=== PATIENT | male | born 1945 | race American Indian/Alaskan Native ===

== ENCOUNTER 2018-06-24 13:26 | Inpatient (IN) | payer MEDICARE, OTHER ==
[~2018-06-24] VITALS: Ht 160 cm; Wt 82.8 kg
[2018-06-24 14:19] LABS: BASOPHILS # (AUTO) 0.1 X10'3 (0-0.2); BASOPHILS % (AUTO) 0.9 % (0-1); EOSINOPHILS # (AUTO) 0.1 X10'3 (0-0.9); EOSINOPHILS % (AUTO) 1.6 % (0-6); HEMATOCRIT 44.5 % (42.0-52.0); LYMPHOCYTES # (AUTO) 1.9 X10'3 (1.1-4.8); LYMPHOCYTES % (AUTO) 26.2 % (21-51); MEAN CORPUSCULAR HGB CONC 33.7 % (33.0-36.5); MEAN CORPUSCULAR VOLUME 85.9 FL (78-98); MEAN PLATELET VOLUME 9.1 FL (7.4-10.4); MONOCYTES # (AUTO) 0.5 X10'3 (0-0.9); MONOCYTES % (AUTO) 7.3 % (2-12); NEUTROPHILS # (AUTO) 4.6 X10'3 (1.8-7.7); PLATELET COUNT 209 X10'3 (140-440); RED BLOOD COUNT 5.18 X10'6 (4.70-6.10); RED CELL DISTRIBUTION WIDTH 13.4 % (11.5-14.5); WHITE BLOOD COUNT 7.3 X10'3 (4.5-11.0)
[2018-06-24 14:31] LABS: PARTIAL THROMBOPLASTIN TIME 25 SECONDS (22-32); PROTHROMBIN TIME 10.7 SECONDS (9.0-12.0)
[2018-06-24 14:35] LABS: ALANINE AMINOTRANSFERASE 15 U/L (12-78); ALBUMIN 3.3 G/DL (3.4-5.0); ALKALINE PHOSPHATASE 107 IU/L (46-116); ANION GAP 8 (8-16); ASPARTATE AMINO TRANSFERASE 13 U/L (10-37); BILIRUBIN,TOTAL 0.6 MG/DL (0.1-1.0); BLOOD UREA NITROGEN 7 MG/DL (7-18); BUN/CREATININE RATIO 11.9 (5.4-32.0); CALCIUM 8.7 MG/DL (8.5-10.1); CHLORIDE 100 MMOL/L (99-107); CREATININE 0.59 MG/DL (0.60-1.10); GLUCOSE 251 MG/DL (70-104); POTASSIUM 3.5 MMOL/L (3.5-5.1); SODIUM 138 MMOL/L (135-145); TOTAL CARBON DIOXIDE 30.5 MMOL/L (24-32); TOTAL PROTEIN 6.5 G/DL (6.4-8.2); eGFR > 90 ML/MIN
[2018-06-24 15:37] LABS: D-DIMER 0.84 MG/L FEU (0-0.50)
[2018-06-24] MEDS ORDERED: iohexol 350MG/ML 100ml bottle IV ONE (15:52)
[2018-06-24] MEDS: MESSAGE TO NURSING PO NR (16:32)
[2018-06-24] MEDS ORDERED: NO HOME MEDS (18:59)
[2018-06-24] MEDS ORDERED: magnesium hydroxide 30ml (MOM) UD suspension PO PRN (19:50)
[2018-06-24] MEDS ORDERED: mag hydrox/Alum hydrox/simeth 30ml oral suspension PO PRN (19:50)
[2018-06-24] MEDS ORDERED: acetaminophen 325mg tablet PO PRN (19:50)
[2018-06-24] MEDS ORDERED: ondansetron/PF 4mg/2ml inj IV PRN (19:50)
[2018-06-24] MEDS ORDERED: dextrose ORAL solution 15 GM/59 ML bottle PO PRN ×2 (19:55)
[2018-06-24] MEDS ORDERED: dextrose 50%-water 50ml dispensing syringe IV PRN ×2 (19:55)
[2018-06-24] MEDS ORDERED: glucagon, human recombinant 1mg kit SUBCUT PRN (19:55)
[2018-06-24] MEDS ORDERED: MESSAGE TO PHARMACY PO ONE (19:55)
[2018-06-24 20:00] VITALS: BP 160/89
[2018-06-24] MEDS ORDERED: LIDO700A32 (20:15)
[2018-06-24] MEDS ORDERED: SAXA1TBM2 PO (20:15)
[2018-06-24] MEDS ORDERED: [UNRECOGNIZED DRUG - OTHER] SUBCUT (20:15)
[2018-06-24] MEDS ORDERED: SAXA5TAB PO (20:15)
[2018-06-24] MEDS ORDERED: VENL-190 (20:15)
[2018-06-24] MEDS ORDERED: ALBU8HFA PO (20:15)
[2018-06-24] MEDS ORDERED: IBUP-1984 PO (20:15)
[2018-06-24] MEDS ORDERED: FENO145T36 PO (20:15)
[2018-06-24] MEDS ORDERED: LOSA25TA96 PO (20:15)
[2018-06-24] MEDS ORDERED: BUDE0.5A11 NEB (20:15)
[2018-06-24] MEDS ORDERED: METF500T PO (20:15)
[2018-06-24] MEDS ORDERED: TIOT18CA3 INH (20:15)
[2018-06-24] MEDS ORDERED: PANT-47 PO (20:15)
[2018-06-24] MEDS ORDERED: CETI1SOL48 PO (20:15)
[2018-06-24] MEDS ORDERED: GABA-532 PO (20:15)
[2018-06-24] MEDS ORDERED: ASPI-41 PO (20:15)
[2018-06-24] MEDS ORDERED: OMEG1CAP PO (20:15)
[2018-06-24] MEDS ORDERED: LACT1CAP65 PO (20:15)
[2018-06-24] MEDS ORDERED: PARA500W MC (20:15)
[2018-06-24] MEDS ORDERED: CHOL400T32 PO (20:15)
[2018-06-24 20:19] LABS: HEMOGLOBIN A1C 10.1 % (4.5-6.2)
[2018-06-24] MEDS ORDERED: ALBUTEROL PO PRN (20:25)
[2018-06-24] MEDS ORDERED: ipratropium 0.5 MG/2.5ML nebule IH SCH (21:00)
[2018-06-24] MEDS: insulin Lispro (HumaLOG) vial - multi-dose SQ SCH (21:28)
[2018-06-24] MEDS: insulin glargine (Lantus) pen - multi-dose SQ SCH (21:33)
[2018-06-24] MEDS: gabapentin 300mg capsule PO SCH (21:34)
[2018-06-24] MEDS: heparin, porcine 5000 units/ml vial SQ SCH (21:41)
[2018-06-24 22:00] VITALS: BP 151/88
[2018-06-25 02:00] VITALS: BP 162/103
[2018-06-25 02:03] LABS: BASOPHILS % (AUTO) 0.6 % (0-1); EOSINOPHILS # (AUTO) 0.2 X10'3 (0-0.9); EOSINOPHILS % (AUTO) 2.4 % (0-6); HEMATOCRIT 44.6 % (42.0-52.0); LYMPHOCYTES # (AUTO) 2.2 X10'3 (1.1-4.8); MEAN CORPUSCULAR HEMOGLOBIN 29.1 PG (27.0-31.0); MEAN CORPUSCULAR HGB CONC 33.6 % (33.0-36.5); MEAN CORPUSCULAR VOLUME 86.9 FL (78-98); MEAN PLATELET VOLUME 9.4 FL (7.4-10.4); MONOCYTES # (AUTO) 0.6 X10'3 (0-0.9); MONOCYTES % (AUTO) 7.4 % (2-12); NEUTROPHILS % (AUTO) 61.6 % (42-75); PLATELET COUNT 173 X10'3 (140-440); RED BLOOD COUNT 5.14 X10'6 (4.70-6.10); RED CELL DISTRIBUTION WIDTH 12.8 % (11.5-14.5)
[2018-06-25 03:11] LABS: ALANINE AMINOTRANSFERASE 19 U/L (12-78); ALBUMIN 3.1 G/DL (3.4-5.0); ALKALINE PHOSPHATASE 96 IU/L (46-116); ANION GAP 5 (8-16); ASPARTATE AMINO TRANSFERASE 14 U/L (10-37); BILIRUBIN,TOTAL 0.4 MG/DL (0.1-1.0); BLOOD UREA NITROGEN 10 MG/DL (7-18); BUN/CREATININE RATIO 16.9 (5.4-32.0); CALCIUM 8.7 MG/DL (8.5-10.1); CHLORIDE 101 MMOL/L (99-107); CREATININE 0.59 MG/DL (0.60-1.10); GLUCOSE 214 MG/DL (70-104); POTASSIUM 3.3 MMOL/L (3.5-5.1); SODIUM 138 MMOL/L (135-145); TOTAL CARBON DIOXIDE 32.3 MMOL/L (24-32); TOTAL PROTEIN 6.2 G/DL (6.4-8.2); TROPONIN I < 0.04 NG/ML (0.0-0.05); eGFR > 90 ML/MIN
[2018-06-25 07:16] VITALS: BP 164/104
[2018-06-25] MEDS: budesonide 0.5mg/2ml UD nebule IH SCH ×2 (07:41→20:02)
[2018-06-25] MEDS ORDERED: non-formulary drug (Tiotropium Bromide (Spiriva) 1 CAP) INH SCH (08:00)
[2018-06-25] MEDS ORDERED: CETIRIZINE HCL PO SCH (08:00)
[2018-06-25] MEDS: aspirin 81mg tablet.DR PO SCH (08:27)
[2018-06-25] MEDS: omega-3 acid ethyl esters 1GM capsule PO SCH ×2 (08:27→20:59)
[2018-06-25] MEDS: cetirizine 10mg tablet PO SCH (08:27)
[2018-06-25] MEDS: losartan 50mg tablet PO SCH (08:27)
[2018-06-25] MEDS: fenofibrate 145mg tablet PO SCH (08:27)
[2018-06-25] MEDS: venlafaxine XR 75mg capsule (Q24H) PO SCH (08:27)
[2018-06-25] MEDS: heparin, porcine 5000 units/ml vial SQ SCH ×2 (08:28→21:00)
[2018-06-25] MEDS: pantoprazole 40mg Tablet.DR PO SCH ×2 (08:28→20:59)
[2018-06-25] MEDS ORDERED: aspirin 325mg tablet PO SCH (08:30)
[2018-06-25] MEDS: insulin Lispro (HumaLOG) vial - multi-dose SQ SCH ×3 (08:31→19:12)
[2018-06-25] MEDS: LIDOcaine 5% patch TP SCH (08:32)
[2018-06-25] MEDS ORDERED: metoprolol tartrate 1mg/ml inj IV PRN (10:25)
[2018-06-25] MEDS ORDERED: CAFFEINE CITRATE 60 MG/3 ML injection vial IV PRN (10:25)
[2018-06-25] MEDS ORDERED: nitroGLYCERIN 0.4mg SUBLingual tab SL PRN (10:25)
[2018-06-25] MEDS ORDERED: regadenoson 0.4mg/5ml syringe IV ONE (10:25)
[2018-06-25 11:00] VITALS: BP 167/99
[2018-06-25 15:00] VITALS: BP 100/55
[2018-06-25 18:00] VITALS: BP 154/102
[2018-06-25] MEDS: gabapentin 300mg capsule PO SCH (20:59)
[2018-06-25] MEDS: insulin glargine (Lantus) pen - multi-dose SQ SCH (21:27)
[2018-06-25 22:00] VITALS: BP 162/102
[2018-06-25] MEDS ORDERED: potassium Cl 20 mEq SR tablet PO PRN (22:40)
[2018-06-25] MEDS ORDERED: magnesium 4gm in 100ml NS 100 ML IV PRN (22:40)
[2018-06-25] MEDS ORDERED: potassium Cl 40MEQ/NS 500ml 500 ML IV PRN ×2 (22:40)
[2018-06-26] VITALS (22 sets, daily range): BP systolic 105–146; BP diastolic 54–98
[2018-06-26] MEDS: potassium Cl 20 mEq SR tablet PO PRN ×2 (00:19→05:03)
[2018-06-26 06:38] LABS: BASOPHILS % (AUTO) 0.3 % (0-1); EOSINOPHILS # (AUTO) 0.1 X10'3 (0-0.9); EOSINOPHILS % (AUTO) 1.5 % (0-6); HEMATOCRIT 46.6 % (42.0-52.0); HEMOGLOBIN 15.4 g/dl (14.0-17.9); LYMPHOCYTES # (AUTO) 1.6 X10'3 (1.1-4.8); LYMPHOCYTES % (AUTO) 21.2 % (21-51); MEAN CORPUSCULAR HEMOGLOBIN 28.6 PG (27.0-31.0); MEAN CORPUSCULAR VOLUME 86.7 FL (78-98); MEAN PLATELET VOLUME 9.8 FL (7.4-10.4); MONOCYTES # (AUTO) 0.5 X10'3 (0-0.9); NEUTROPHILS # (AUTO) 5.3 X10'3 (1.8-7.7); PLATELET COUNT 207 X10'3 (140-440); RED BLOOD COUNT 5.37 X10'6 (4.70-6.10); RED CELL DISTRIBUTION WIDTH 13.7 % (11.5-14.5); WHITE BLOOD COUNT 7.5 X10'3 (4.5-11.0)
[2018-06-26 07:00] LABS: MAGNESIUM 1.5 MG/DL (1.5-2.4)
[2018-06-26 07:12] LABS: ALANINE AMINOTRANSFERASE 16 U/L (12-78); ALBUMIN 3.2 G/DL (3.4-5.0); ALKALINE PHOSPHATASE 95 IU/L (46-116); ANION GAP 8 (8-16); ASPARTATE AMINO TRANSFERASE 12 U/L (10-37); BILIRUBIN,TOTAL 0.6 MG/DL (0.1-1.0); BLOOD UREA NITROGEN 10 MG/DL (7-18); BUN/CREATININE RATIO 17.9 (5.4-32.0); CALCIUM 8.9 MG/DL (8.5-10.1); CHLORIDE 102 MMOL/L (99-107); CREATININE 0.56 MG/DL (0.60-1.10); GLUCOSE 142 MG/DL (70-104); MAGNESIUM 1.6 MG/DL (1.5-2.4); SODIUM 139 MMOL/L (135-145); TOTAL PROTEIN 6.4 G/DL (6.4-8.2); eGFR > 90 ML/MIN
[2018-06-26] MEDS: budesonide 0.5mg/2ml UD nebule IH SCH ×2 (08:12→19:55)
[2018-06-26] MEDS ORDERED: regadenoson 0.4mg/5ml syringe IV ONE (09:20)
[2018-06-26] MEDS ORDERED: CAFFEINE CITRATE 60 MG/3 ML injection vial IV ONE (09:20)
[2018-06-26] MEDS ORDERED: ondansetron/PF 4mg/2ml inj ONE (09:45)
[2018-06-26] MEDS: MESSAGE TO NURSING PO NR (10:00)
[2018-06-26] MEDS: cetirizine 10mg tablet PO SCH (10:56)
[2018-06-26] MEDS: aspirin 81mg tablet.DR PO SCH (10:56)
[2018-06-26] MEDS: pantoprazole 40mg Tablet.DR PO SCH ×2 (10:56→20:50)
[2018-06-26] MEDS: fenofibrate 145mg tablet PO SCH (10:56)
[2018-06-26] MEDS: omega-3 acid ethyl esters 1GM capsule PO SCH ×2 (10:56→20:50)
[2018-06-26] MEDS: venlafaxine XR 75mg capsule (Q24H) PO SCH (10:56)
[2018-06-26] MEDS: heparin, porcine 5000 units/ml vial SQ SCH (10:57)
[2018-06-26] MEDS: losartan 50mg tablet PO SCH (10:57)
[2018-06-26] MEDS: LIDOcaine 5% patch TP SCH (10:57)
[2018-06-26] MEDS: normal saline 1000ml 1,000 ML IV SCH ×2 (13:15→22:55)
[2018-06-26] MEDS: insulin Lispro (HumaLOG) vial - multi-dose SQ SCH ×2 (13:30→20:56)
[2018-06-26] MEDS ORDERED: fentaNYL/PF 50MCG/1 ML 2ML syringe ONE (17:55)
[2018-06-26] MEDS ORDERED: LIDOcaine 1% 30ml preserv. free vial ONE (17:55)
[2018-06-26] MEDS ORDERED: midazolam 2 mg/2 ml injection ONE (17:55)
[2018-06-26] MEDS ORDERED: iohexol 350 MG/ML 50ML vial IV ONE ×2 (17:55→18:31)
[2018-06-26] MEDS ORDERED: iohexol 350MG/ML 100ml bottle IV ONE (17:55)
[2018-06-26] MEDS ORDERED: heparin 1,000 UNITS/NS 500ml 500 ML ONE (17:56)
[2018-06-26] MEDS: gabapentin 300mg capsule PO SCH (20:50)
[2018-06-26] MEDS: carVEDilol 3.125mg tablet PO SCH (20:50)
[2018-06-26] MEDS: enoxaparin 40mg/0.4ml syringe SUBCUT SCH (20:58)
[2018-06-26] MEDS: insulin glargine (Lantus) pen - multi-dose SQ SCH (20:58)
[2018-06-27 03:00] VITALS: BP 126/75
[2018-06-27 06:00] VITALS: BP 132/81
[2018-06-27 06:31] LABS: BASOPHILS % (AUTO) 0.4 % (0-1); EOSINOPHILS # (AUTO) 0.2 X10'3 (0-0.9); EOSINOPHILS % (AUTO) 2.4 % (0-6); HEMATOCRIT 44.2 % (42.0-52.0); HEMOGLOBIN 14.6 g/dl (14.0-17.9); LYMPHOCYTES # (AUTO) 1.3 X10'3 (1.1-4.8); LYMPHOCYTES % (AUTO) 16.7 % (21-51); MEAN CORPUSCULAR HEMOGLOBIN 28.9 PG (27.0-31.0); MEAN CORPUSCULAR VOLUME 87.5 FL (78-98); MEAN PLATELET VOLUME 9.7 FL (7.4-10.4); MONOCYTES # (AUTO) 0.5 X10'3 (0-0.9); MONOCYTES % (AUTO) 6.3 % (2-12); NEUTROPHILS # (AUTO) 5.9 X10'3 (1.8-7.7); NEUTROPHILS % (AUTO) 74.2 % (42-75); PLATELET COUNT 210 X10'3 (140-440); RED BLOOD COUNT 5.05 X10'6 (4.70-6.10); RED CELL DISTRIBUTION WIDTH 14.2 % (11.5-14.5)
[2018-06-27 07:22] LABS: ALANINE AMINOTRANSFERASE 17 U/L (12-78); ALBUMIN 2.9 G/DL (3.4-5.0); ALKALINE PHOSPHATASE 83 IU/L (46-116); ANION GAP 4 (8-16); ASPARTATE AMINO TRANSFERASE 15 U/L (10-37); BILIRUBIN,TOTAL 0.4 MG/DL (0.1-1.0); BLOOD UREA NITROGEN 10 MG/DL (7-18); BUN/CREATININE RATIO 16.1 (5.4-32.0); CALCIUM 8.4 MG/DL (8.5-10.1); CHLORIDE 101 MMOL/L (99-107); CREATININE 0.62 MG/DL (0.60-1.10); GLUCOSE 135 MG/DL (70-104); MAGNESIUM 1.4 MG/DL (1.5-2.4); POTASSIUM 4.1 MMOL/L (3.5-5.1); SODIUM 137 MMOL/L (135-145); TOTAL CARBON DIOXIDE 32.2 MMOL/L (24-32); TOTAL PROTEIN 5.9 G/DL (6.4-8.2); eGFR > 90 ML/MIN
[2018-06-27] MEDS: budesonide 0.5mg/2ml UD nebule IH SCH ×2 (07:27→19:12)
[2018-06-27] MEDS ORDERED: lisinopril 2.5mg tablet PO SCH (08:00)
[2018-06-27] MEDS ORDERED: enoxaparin 40mg/0.4ml syringe SUBCUT SCH (08:00)
[2018-06-27] MEDS: pantoprazole 40mg Tablet.DR PO SCH ×2 (08:40→20:16)
[2018-06-27] MEDS: atorvastatin 20mg tablet PO SCH (08:40)
[2018-06-27] MEDS: omega-3 acid ethyl esters 1GM capsule PO SCH ×2 (08:40→20:16)
[2018-06-27] MEDS: cetirizine 10mg tablet PO SCH (08:40)
[2018-06-27] MEDS: venlafaxine XR 75mg capsule (Q24H) PO SCH (08:40)
[2018-06-27] MEDS: losartan 50mg tablet PO SCH (08:40)
[2018-06-27] MEDS: aspirin 81mg tablet.DR PO SCH (08:40)
[2018-06-27] MEDS: fenofibrate 145mg tablet PO SCH (08:40)
[2018-06-27] MEDS: carVEDilol 3.125mg tablet PO SCH ×2 (08:40→20:16)
[2018-06-27] MEDS: enoxaparin 40mg/0.4ml syringe SUBCUT SCH ×2 (08:41→20:16)
[2018-06-27] MEDS: normal saline 1000ml 1,000 ML IV SCH ×2 (08:55→18:55)
[2018-06-27] MEDS: LIDOcaine 5% patch TP SCH (08:56)
[2018-06-27] MEDS: insulin Lispro (HumaLOG) vial - multi-dose SQ SCH ×3 (10:04→19:50)
[2018-06-27 11:00] VITALS: BP 163/82
[2018-06-27] MEDS: magnesium Cl slow-release 64mg tablet PO PRN ×2 (13:05→17:50)
[2018-06-27 15:00] VITALS: BP 116/73
[2018-06-27 19:00] VITALS: BP 123/43
[2018-06-27] MEDS: albuterol 2.5 MG/3 ML nebule NEB PRN (19:12)
[2018-06-27] MEDS: gabapentin 300mg capsule PO SCH (20:16)
[2018-06-27] MEDS: insulin glargine (Lantus) pen - multi-dose SQ SCH (20:47)
[2018-06-27 23:00] VITALS: BP 106/59
[2018-06-28 03:00] VITALS: BP 137/50
[2018-06-28 06:00] VITALS: BP 169/63
[2018-06-28 06:09] LABS: BASOPHILS % (AUTO) 0.3 % (0-1); EOSINOPHILS # (AUTO) 0.2 X10'3 (0-0.9); EOSINOPHILS % (AUTO) 3.1 % (0-6); HEMATOCRIT 42.1 % (42.0-52.0); HEMOGLOBIN 13.9 g/dl (14.0-17.9); LYMPHOCYTES # (AUTO) 1.8 X10'3 (1.1-4.8); LYMPHOCYTES % (AUTO) 22.3 % (21-51); MONOCYTES # (AUTO) 0.7 X10'3 (0-0.9); MONOCYTES % (AUTO) 8.4 % (2-12); NEUTROPHILS # (AUTO) 5.2 X10'3 (1.8-7.7); NEUTROPHILS % (AUTO) 65.9 % (42-75); PLATELET COUNT 202 X10'3 (140-440); RED BLOOD COUNT 4.79 X10'6 (4.70-6.10); RED CELL DISTRIBUTION WIDTH 13.8 % (11.5-14.5); WHITE BLOOD COUNT 7.9 X10'3 (4.5-11.0)
[2018-06-28 06:37] LABS: ALANINE AMINOTRANSFERASE 17 U/L (12-78); ALBUMIN 2.8 G/DL (3.4-5.0); ALBUMIN/GLOBULIN RATIO 0.9 (1.1-1.5); ALKALINE PHOSPHATASE 73 IU/L (46-116); ANION GAP 1 (8-16); ASPARTATE AMINO TRANSFERASE 13 U/L (10-37); BILIRUBIN,TOTAL 0.5 MG/DL (0.1-1.0); BLOOD UREA NITROGEN 10 MG/DL (7-18); BUN/CREATININE RATIO 13.9 (5.4-32.0); CALCIUM 8.5 MG/DL (8.5-10.1); CHLORIDE 100 MMOL/L (99-107); CREATININE 0.72 MG/DL (0.60-1.10); GLUCOSE 126 MG/DL (70-104); MAGNESIUM 1.5 MG/DL (1.5-2.4); POTASSIUM 4.7 MMOL/L (3.5-5.1); SODIUM 137 MMOL/L (135-145); TOTAL PROTEIN 5.9 G/DL (6.4-8.2); eGFR > 90 ML/MIN
[2018-06-28] MEDS: budesonide 0.5mg/2ml UD nebule IH SCH ×2 (07:52→18:50)
[2018-06-28] MEDS: omega-3 acid ethyl esters 1GM capsule PO SCH ×2 (07:58→20:24)
[2018-06-28] MEDS: venlafaxine XR 75mg capsule (Q24H) PO SCH (07:58)
[2018-06-28] MEDS: aspirin 81mg tablet.DR PO SCH (07:58)
[2018-06-28] MEDS: atorvastatin 20mg tablet PO SCH (07:58)
[2018-06-28] MEDS: cetirizine 10mg tablet PO SCH (07:59)
[2018-06-28] MEDS: losartan 50mg tablet PO SCH (07:59)
[2018-06-28] MEDS: LIDOcaine 5% patch TP SCH (07:59)
[2018-06-28] MEDS: carVEDilol 3.125mg tablet PO SCH ×2 (07:59→20:25)
[2018-06-28] MEDS: pantoprazole 40mg Tablet.DR PO SCH ×2 (07:59→20:25)
[2018-06-28] MEDS: fenofibrate 145mg tablet PO SCH (07:59)
[2018-06-28] MEDS: enoxaparin 40mg/0.4ml syringe SUBCUT SCH (08:00)
[2018-06-28] MEDS: insulin Lispro (HumaLOG) vial - multi-dose SQ SCH ×3 (09:39→20:23)
[2018-06-28] MEDS ORDERED: heparin 10,000 units/1 ML INJ IV PRN (13:35)
[2018-06-28] MEDS ORDERED: heparin 10,000 units/1 ML INJ IV ONE (13:35)
[2018-06-28 14:14] LABS: BASOPHILS # (AUTO) 0.1 X10'3 (0-0.2); BASOPHILS % (AUTO) 1.3 % (0-1); EOSINOPHILS # (AUTO) 0.2 X10'3 (0-0.9); EOSINOPHILS % (AUTO) 1.8 % (0-6); HEMATOCRIT 44.9 % (42.0-52.0); HEMOGLOBIN 14.5 g/dl (14.0-17.9); LYMPHOCYTES # (AUTO) 1.7 X10'3 (1.1-4.8); MEAN CORPUSCULAR HEMOGLOBIN 28.5 PG (27.0-31.0); MEAN CORPUSCULAR HGB CONC 32.3 % (33.0-36.5); MEAN CORPUSCULAR VOLUME 88.2 FL (78-98); MEAN PLATELET VOLUME 9.5 FL (7.4-10.4); MONOCYTES # (AUTO) 0.8 X10'3 (0-0.9); MONOCYTES % (AUTO) 8.6 % (2-12); NEUTROPHILS # (AUTO) 6.5 X10'3 (1.8-7.7); NEUTROPHILS % (AUTO) 70.3 % (42-75); PLATELET COUNT 205 X10'3 (140-440); RED CELL DISTRIBUTION WIDTH 13.8 % (11.5-14.5); WHITE BLOOD COUNT 9.3 X10'3 (4.5-11.0)
[2018-06-28 14:24] LABS: INR 1.1 INR; PARTIAL THROMBOPLASTIN TIME 29 SECONDS (22-32); PROTHROMBIN TIME 11.4 SECONDS (9.0-12.0)
[2018-06-28 15:00] VITALS: BP 175/84
[2018-06-28 17:57] VITALS: BP 140/80
[2018-06-28] MEDS: albuterol 2.5 MG/3 ML nebule NEB PRN (18:50)
[2018-06-28 19:00] VITALS: BP 138/69
[2018-06-28] MEDS: gabapentin 300mg capsule PO SCH (20:25)
[2018-06-28] MEDS: insulin glargine (Lantus) pen - multi-dose SQ SCH (22:51)
[2018-06-28 23:00] VITALS: BP 115/69
[2018-06-29 02:41] LABS: ALANINE AMINOTRANSFERASE 11 U/L (12-78); ALBUMIN 2.8 G/DL (3.4-5.0); ALBUMIN/GLOBULIN RATIO 0.9 (1.1-1.5); ALKALINE PHOSPHATASE 72 IU/L (46-116); ANION GAP 3 (8-16); ASPARTATE AMINO TRANSFERASE 14 U/L (10-37); BASOPHILS % (AUTO) 0.7 % (0-1); BILIRUBIN,TOTAL 0.4 MG/DL (0.1-1.0); BLOOD UREA NITROGEN 12 MG/DL (7-18); BUN/CREATININE RATIO 24.5 (5.4-32.0); CALCIUM 8.9 MG/DL (8.5-10.1); CHLORIDE 99 MMOL/L (99-107); CREATININE 0.49 MG/DL (0.60-1.10); EOSINOPHILS # (AUTO) 0.1 X10'3 (0-0.9); EOSINOPHILS % (AUTO) 2.2 % (0-6); GLUCOSE 153 MG/DL (70-104); HEMOGLOBIN 13.6 g/dl (14.0-17.9); LYMPHOCYTES # (AUTO) 1.7 X10'3 (1.1-4.8); LYMPHOCYTES % (AUTO) 25.8 % (21-51); MAGNESIUM 1.5 MG/DL (1.5-2.4); MEAN CORPUSCULAR HEMOGLOBIN 28.9 PG (27.0-31.0); MEAN CORPUSCULAR HGB CONC 33.1 % (33.0-36.5); MEAN CORPUSCULAR VOLUME 87.4 FL (78-98); MEAN PLATELET VOLUME 10.2 FL (7.4-10.4); MONOCYTES # (AUTO) 0.6 X10'3 (0-0.9); MONOCYTES % (AUTO) 9.7 % (2-12); NEUTROPHILS # (AUTO) 4.1 X10'3 (1.8-7.7); NEUTROPHILS % (AUTO) 61.6 % (42-75); PLATELET COUNT 174 X10'3 (140-440); POTASSIUM 3.9 MMOL/L (3.5-5.1); RED BLOOD COUNT 4.69 X10'6 (4.70-6.10); RED CELL DISTRIBUTION WIDTH 13.7 % (11.5-14.5); SODIUM 140 MMOL/L (135-145); WHITE BLOOD COUNT 6.7 X10'3 (4.5-11.0); eGFR > 90 ML/MIN
[2018-06-29 06:00] VITALS: BP 110/70
[2018-06-29] MEDS: budesonide 0.5mg/2ml UD nebule IH SCH ×2 (07:49→20:42)
[2018-06-29] MEDS: fenofibrate 145mg tablet PO SCH (08:31)
[2018-06-29] MEDS: aspirin 81mg tablet.DR PO SCH (08:31)
[2018-06-29] MEDS: pantoprazole 40mg Tablet.DR PO SCH ×2 (08:31→20:50)
[2018-06-29] MEDS: losartan 50mg tablet PO SCH (08:31)
[2018-06-29] MEDS: venlafaxine XR 75mg capsule (Q24H) PO SCH (08:31)
[2018-06-29] MEDS: omega-3 acid ethyl esters 1GM capsule PO SCH ×2 (08:31→20:50)
[2018-06-29] MEDS: cetirizine 10mg tablet PO SCH (08:31)
[2018-06-29] MEDS: atorvastatin 20mg tablet PO SCH (08:31)
[2018-06-29] MEDS: carVEDilol 3.125mg tablet PO SCH ×2 (08:32→20:50)
[2018-06-29] MEDS: LIDOcaine 5% patch TP SCH (08:32)
[2018-06-29] MEDS: insulin Lispro (HumaLOG) vial - multi-dose SQ SCH ×3 (08:38→18:49)
[2018-06-29] MEDS: albuterol 2.5 MG/3 ML nebule NEB PRN (10:56)
[2018-06-29 15:00] VITALS: BP 104/64
[2018-06-29 16:01] LABS: ABG BASE EXCESS 8.6 mmol/L (-2.0-3.0); ABG HCO3 35.4 mmol/L (22.0-26.0); ABG OXYGEN SATURATION 98.7 % (95-98); ABG PCO2 (T) 57.1 mmHg (35.0-48.0); ABG PO2 (T) 131.4 mmHg (83-108); ALLEN'S TEST Positive; FCOHb 0.5 % (0.5-1.5); FLOW 3 L/min; FMetHb 0.2 % (0.3-1.12); TOTAL HEMOGLOBIN 14.7 G/dl (14.0-18.0)
[2018-06-29 19:00] VITALS: BP 125/62
[2018-06-29] MEDS: gabapentin 300mg capsule PO SCH (20:50)
[2018-06-29] MEDS: insulin glargine (Lantus) pen - multi-dose SQ SCH (21:07)
[2018-06-29 23:00] VITALS: BP 122/77
[2018-06-30] VITALS (19 sets, daily range): BP systolic 92–129; BP diastolic 48–81
[2018-06-30] MEDS ORDERED: ringers solution, lacted 1,000 ML IV SCH (01:00)
[2018-06-30] MEDS ORDERED: vancomycin/NS 1 GM ADD-VANTAGE 250 ML IV ONE (01:00)
[2018-06-30] MEDS ORDERED: dextrose 50%-water 50ml dispensing syringe IV PRN ×2 (01:00→12:30)
[2018-06-30] MEDS ORDERED: cefazolin/dext.iso 2gm/50ml 50 ML IV ONE (01:00)
[2018-06-30 04:04] LABS: BASOPHILS # (AUTO) 0.1 X10'3 (0-0.2); BASOPHILS % (AUTO) 1.2 % (0-1); EOSINOPHILS # (AUTO) 0.2 X10'3 (0-0.9); EOSINOPHILS % (AUTO) 2.8 % (0-6); HEMATOCRIT 41.6 % (42.0-52.0); HEMOGLOBIN 13.7 g/dl (14.0-17.9); LYMPHOCYTES # (AUTO) 1.5 X10'3 (1.1-4.8); LYMPHOCYTES % (AUTO) 23.8 % (21-51); MEAN CORPUSCULAR HEMOGLOBIN 28.8 PG (27.0-31.0); MEAN CORPUSCULAR HGB CONC 32.8 % (33.0-36.5); MEAN CORPUSCULAR VOLUME 87.6 FL (78-98); MEAN PLATELET VOLUME 10.3 FL (7.4-10.4); MONOCYTES # (AUTO) 0.6 X10'3 (0-0.9); MONOCYTES % (AUTO) 9.8 % (2-12); NEUTROPHILS # (AUTO) 3.9 X10'3 (1.8-7.7); NEUTROPHILS % (AUTO) 62.4 % (42-75); PLATELET COUNT 159 X10'3 (140-440); RED BLOOD COUNT 4.75 X10'6 (4.70-6.10); RED CELL DISTRIBUTION WIDTH 13.7 % (11.5-14.5); WHITE BLOOD COUNT 6.2 X10'3 (4.5-11.0)
[2018-06-30 04:16] LABS: ALBUMIN 2.9 G/DL (3.4-5.0); ANION GAP 1 (8-16); BLOOD UREA NITROGEN 10 MG/DL (7-18); BUN/CREATININE RATIO 18.2 (5.4-32.0); CALCIUM 9.1 MG/DL (8.5-10.1); CHLORIDE 100 MMOL/L (99-107); CREATININE 0.55 MG/DL (0.60-1.10); GLUCOSE 145 MG/DL (70-104); SODIUM 139 MMOL/L (135-145); TOTAL CARBON DIOXIDE 37.7 MMOL/L (24-32); eGFR > 90 ML/MIN
[2018-06-30 04:19] LABS: INR 1.1 INR; PROTHROMBIN TIME 11.4 SECONDS (9.0-12.0)
[2018-06-30 04:22] LABS: POTASSIUM 4.2 MMOL/L (3.5-5.1)
[2018-06-30] MEDS ORDERED: LORazepam 2 mg/ml vial IV ONE (06:00)
[2018-06-30] MEDS ORDERED: famotidine 20mg tablet PO ONE (06:00)
[2018-06-30] MEDS ORDERED: mupirocin 2% nasal ointment 1gm UD NS SCH (06:22)
[2018-06-30] MEDS ORDERED: SUFENTANIL CITRATE 50 MCG/ML 2ml ampule IV ONE (06:58)
[2018-06-30] MEDS ORDERED: MIDAZolam 1mg/ml 10ml vial ONE (06:58)
[2018-06-30] MEDS: budesonide 0.5mg/2ml UD nebule IH SCH ×2 (06:59→20:00)
[2018-06-30] MEDS: albuterol 2.5 MG/3 ML nebule NEB PRN (06:59)
[2018-06-30] MEDS ORDERED: rocuronium 10mg/ml inj IV ONE ×2 (06:59)
[2018-06-30] MEDS ORDERED: propofol inj 20 ML IV ONE (06:59)
[2018-06-30] MEDS ORDERED: sevoflurane 250ml liquid IH ONE (07:00)
[2018-06-30] MEDS: venlafaxine XR 75mg capsule (Q24H) PO SCH (08:00)
[2018-06-30] MEDS: cetirizine 10mg tablet PO SCH (08:00)
[2018-06-30 08:01] LABS: ABG BASE EXCESS 8.8 mmol/L (-2.0-3.0); ABG HCO3 34.5 mmol/L (22.0-26.0); ABG OXYGEN SATURATION 96.6 % (95-98); ABG PCO2 51.9 mmHg (35.0-45.0); ABG PH 7.441 (7.350-7.450); ABG PO2 82.3 mmHg (60.0-100.0); CL (ABG) 98 mmol/L (99-107); FCOHb 1.1 % (0.5-1.5); FO2Hb 95.5 % (94-100); GLUCOSE (ABG) 120 mg/dl (70-105); IONIZED CA (ABG) 1.12 mmol/L (1.03-1.32); K (ABG) 3.9 mmol/L (3.3-5.1); NA (ABG) 138 mmol/L (135-145)
[2018-06-30] MEDS ORDERED: heparin 10,000 units/1 ML INJ IR ONE (08:41)
[2018-06-30] MEDS ORDERED: papaverine 30 mg/ml 2ml inj. IA ONE (08:44)
[2018-06-30] MEDS ORDERED: aminocaproic acid 250 MG/1 ML inj. ONE (09:00)
[2018-06-30] MEDS ORDERED: papaverine 30 mg/ml 2ml inj. ONE (09:00)
[2018-06-30] MEDS ORDERED: NORepinephrine bitartrate 8 MG in NS 250 ML BAG (32 mcg/ml) IV ONE (09:00)
[2018-06-30] MEDS ORDERED: heparin 1,000 units/ml 10ml inj ONE (09:00)
[2018-06-30] MEDS ORDERED: albumin (human) 25% 100 ML IV solution IV ONE (09:00)
[2018-06-30] MEDS ORDERED: potassium Cl 2 mEq/ml inj IV ONE (09:00)
[2018-06-30] MEDS ORDERED: magnesium sulf 1 GM/2 ML ONE (09:00)
[2018-06-30] MEDS ORDERED: calcium chloride 100 MG/1 ML inj IV ONE (09:00)
[2018-06-30] MEDS ORDERED: phenylephrine 10mg/ml inj. ONE (09:00)
[2018-06-30] MEDS ORDERED: insulin Lispro (HumaLOG) vial - multi-dose SQ SCH (09:00)
[2018-06-30] MEDS ORDERED: heparin 10,000 units/1 ML INJ ONE ×2 (09:00)
[2018-06-30] MEDS ORDERED: sodium bicarbonate (8.4%) 1 mEq/ml syringe ONE (09:00)
[2018-06-30 09:06] LABS: ABG BASE EXCESS VENOUS 7.2 mmol/L; ABG HCO3 VENOUS 33.9 mmol/L; ABG PCO2 VENOUS 57.4 mmHg; ABG PO2 VENOUS 42.5 mmHg; CL (ABG) 98 mmol/L (99-107); FCOHb VENOUS 1.1 %; FHHb VENOUS 21.7 %; FMetHb VENOUS 0.3 %; FO2Hb VENOUS 76.9 %; GLUCOSE (ABG) 118 mg/dl (70-105); IONIZED CA (ABG) 1.09 mmol/L (1.03-1.32); K (ABG) 3.8 mmol/L (3.3-5.1); NA (ABG) 138 mmol/L (135-145); TOTAL HEMOGLOBIN 12.9 G/dl (14.0-18.0)
[2018-06-30 09:36] LABS: ABG BASE EXCESS 8.9 mmol/L (-2.0-3.0); ABG HCO3 32.5 mmol/L (22.0-26.0); ABG OXYGEN SATURATION 99.5 % (95-98); ABG PCO2 40.8 mmHg (35.0-45.0); ABG PH 7.519 (7.350-7.450); ABG PO2 332.5 mmHg (60.0-100.0); CL (ABG) 97 mmol/L (99-107); FCOHb 0.5 % (0.5-1.5); FMetHb 0.2 % (0.3-1.12); FO2Hb 98.8 % (94-100); GLUCOSE (ABG) 116 mg/dl (70-105); IONIZED CA (ABG) 0.99 mmol/L (1.03-1.32); NA (ABG) 135 mmol/L (135-145); TOTAL HEMOGLOBIN 10.8 G/dl (14.0-18.0)
[2018-06-30 09:46] LABS: ABG BASE EXCESS 7.4 mmol/L (-2.0-3.0); ABG HCO3 29.8 mmol/L (22.0-26.0); ABG OXYGEN SATURATION 99.6 % (95-98); ABG PO2 368.8 mmHg (60.0-100.0); CL (ABG) 98 mmol/L (99-107); FCOHb 0.5 % (0.5-1.5); FMetHb 0.2 % (0.3-1.12); FO2Hb 98.9 % (94-100); GLUCOSE (ABG) 113 mg/dl (70-105); IONIZED CA (ABG) 1.03 mmol/L (1.03-1.32); K (ABG) 4.3 mmol/L (3.3-5.1); NA (ABG) 136 mmol/L (135-145)
[2018-06-30 10:00] LABS: ABG BASE EXCESS 6.9 mmol/L (-2.0-3.0); ABG HCO3 30.1 mmol/L (22.0-26.0); ABG OXYGEN SATURATION 99.7 % (95-98); ABG PCO2 37.6 mmHg (35.0-45.0); ABG PH 7.521 (7.350-7.450); ABG PO2 368.2 mmHg (60.0-100.0); CL (ABG) 98 mmol/L (99-107); FCOHb 0.7 % (0.5-1.5); FMetHb 0.3 % (0.3-1.12); FO2Hb 98.7 % (94-100); GLUCOSE (ABG) 118 mg/dl (70-105); IONIZED CA (ABG) 1.04 mmol/L (1.03-1.32); K (ABG) 4.6 mmol/L (3.3-5.1); NA (ABG) 136 mmol/L (135-145); TOTAL HEMOGLOBIN 11.2 G/dl (14.0-18.0)
[2018-06-30 10:15] LABS: ACT @ 1.70 U 265 SEC (193-297); ACT @ 2.84 U 371 SEC (260-420); BASELINE ACT 163 SEC (101-148); PATIENT WEIGHT 82.0k KG
[2018-06-30 10:21] LABS: ABG BASE EXCESS 7.2 mmol/L (-2.0-3.0); ABG HCO3 30.2 mmol/L (22.0-26.0); ABG OXYGEN SATURATION 99.7 % (95-98); ABG PCO2 37.2 mmHg (35.0-45.0); ABG PH 7.528 (7.350-7.450); ABG PO2 336.1 mmHg (60.0-100.0); CL (ABG) 98 mmol/L (99-107); FCOHb 0.7 % (0.5-1.5); FMetHb 0.3 % (0.3-1.12); FO2Hb 98.7 % (94-100); GLUCOSE (ABG) 119 mg/dl (70-105); IONIZED CA (ABG) 1.05 mmol/L (1.03-1.32); K (ABG) 4.5 mmol/L (3.3-5.1); NA (ABG) 136 mmol/L (135-145); TOTAL HEMOGLOBIN 11.2 G/dl (14.0-18.0)
[2018-06-30 11:05] LABS: ABG HCO3 30.4 mmol/L (22.0-26.0); ABG OXYGEN SATURATION 99.4 % (95-98); ABG PH 7.721 (7.350-7.450); ABG PO2 439.4 mmHg (60.0-100.0); CL (ABG) 99 mmol/L (99-107); FCOHb 0.2 % (0.5-1.5); FMetHb 0.4 % (0.3-1.12); FO2Hb 98.8 % (94-100); GLUCOSE (ABG) 142 mg/dl (70-105); IONIZED CA (ABG) 1.22 mmol/L (1.03-1.32); K (ABG) 4.4 mmol/L (3.3-5.1); NA (ABG) 134 mmol/L (135-145); TOTAL HEMOGLOBIN 10.3 G/dl (14.0-18.0)
[2018-06-30 11:46] LABS: ABG BASE EXCESS VENOUS 8.6 mmol/L; ABG HCO3 VENOUS 33.1 mmol/L; ABG PCO2 VENOUS 45.4 mmHg; ABG PO2 VENOUS 32.6 mmHg; CL (ABG) 99 mmol/L (99-107); FCOHb VENOUS 0.8 %; FHHb VENOUS 33.5 %; FMetHb VENOUS 0.4 %; FO2Hb VENOUS 65.3 %; GLUCOSE (ABG) 146 mg/dl (70-105); IONIZED CA (ABG) 1.23 mmol/L (1.03-1.32); K (ABG) 4.1 mmol/L (3.3-5.1); NA (ABG) 139 mmol/L (135-145)
[2018-06-30 11:55] LABS: ACTIVATED CLOTTING TIME 120 SEC (101-148)
[2018-06-30] MEDS ORDERED: nitroGLYCERIN-Tridil 50MG/D5W 250 ML IV PRN ×2 (12:27→12:56)
[2018-06-30] MEDS ORDERED: NORepinephrine 8mg/ 250ml NS 250 ML IV PRN ×2 (12:27→12:55)
[2018-06-30] MEDS ORDERED: niCARDipine/sod cl 20mg/200ml 200 ML IV PRN ×2 (12:27→12:56)
[2018-06-30] MEDS ORDERED: DOPamine 400mg/D5W 250ml 250 ML IV PRN ×2 (12:27→12:54)
[2018-06-30] MEDS ORDERED: sodium phosphate inj. 15 MMOL in dextrose 5%-water 150 ML IV PRN (12:30)
[2018-06-30] MEDS ORDERED: magnesium hydroxide 30ml (MOM) UD suspension PO PRN (12:30)
[2018-06-30] MEDS ORDERED: acetaminophen 325mg tablet PO PRN (12:30)
[2018-06-30] MEDS ORDERED: Neutra Phos packet PO PRN (12:30)
[2018-06-30] MEDS ORDERED: metoclopramide 5 mg/ml inj IV PRN (12:30)
[2018-06-30] MEDS ORDERED: ondansetron/PF 4mg/2ml inj IV PRN (12:30)
[2018-06-30] MEDS ORDERED: normal saline 250ml IV soln 250 ML IV PRN (12:30)
[2018-06-30] MEDS ORDERED: sodium phosphate inj. 30 MMOL in dextrose 5%-water 250 ML IV PRN (12:30)
[2018-06-30] MEDS ORDERED: morphine 4 MG/ML inj SYRINge IV PRN (12:30)
[2018-06-30] MEDS ORDERED: potassium Cl 20mEq/100mL bag 100 ML IV PRN ×2 (12:30)
[2018-06-30] MEDS ORDERED: HYDROcodone/acetaminophen 10/325mg tab PO PRN (12:30)
[2018-06-30] MEDS ORDERED: insulin regular, human inj. 100 UNITS in normal saline 100ml IV soln 100 ML IV SCH ×2 (12:30)
[2018-06-30] MEDS ORDERED: albumin (Human) 5% 250ml 250 ML IV ONE (12:42)
[2018-06-30 12:51] LABS: ABG BASE EXCESS 3.9 mmol/L (-2.0-3.0); ABG HCO3 26.3 mmol/L (22.0-26.0); ABG OXYGEN SATURATION 98.7 % (95-98); ABG PCO2 (T) 32.1 mmHg (35.0-48.0); ABG PO2 (T) 141.6 mmHg (83-108); FCOHb 0.3 % (0.5-1.5); FMetHb 0.2 % (0.3-1.12); FO2Hb 98.2 % (94-100); MINUTE VOLUME 8 L/min; PATIENT TEMPERATURE 36.6; PEEP 5 cm H2O; RESPIRATORY RATE 14 b/min; RESPIRATORY RATE (OBSERVED) 24 b/min; TIDAL VOLUME 500 mL
[2018-06-30] MEDS: albumin (Human) 5% 250ml 250 ML IV PRN ×3 (12:52→19:44)
[2018-06-30] MEDS: insulin Lispro (HumaLOG) vial - multi-dose SQ SCH ×2 (13:00→16:42)
[2018-06-30 13:03] LABS: BASOPHILS % (AUTO) 0.3 % (0-1); EOSINOPHILS % (AUTO) 0.3 % (0-6); HEMATOCRIT 36.9 % (42.0-52.0); HEMOGLOBIN 12.2 g/dl (14.0-17.9); LYMPHOCYTES # (AUTO) 0.4 X10'3 (1.1-4.8); MEAN CORPUSCULAR HEMOGLOBIN 28.9 PG (27.0-31.0); MEAN CORPUSCULAR HGB CONC 33.1 % (33.0-36.5); MEAN CORPUSCULAR VOLUME 87.3 FL (78-98); MEAN PLATELET VOLUME 10.1 FL (7.4-10.4); MONOCYTES # (AUTO) 0.3 X10'3 (0-0.9); NEUTROPHILS # (AUTO) 7.5 X10'3 (1.8-7.7); NEUTROPHILS % (AUTO) 90.4 % (42-75); PLATELET COUNT 128 X10'3 (140-440); RED BLOOD COUNT 4.23 X10'6 (4.70-6.10); RED CELL DISTRIBUTION WIDTH 13.6 % (11.5-14.5); WHITE BLOOD COUNT 8.3 X10'3 (4.5-11.0)
[2018-06-30] MEDS: insulin regular, human inj. 100 UNITS in normal saline 100ml IV soln 100 ML IV SCH ×2 (13:03)
[2018-06-30] MEDS: milrinone (Primacor) 20mg/D5W 100 ML IV PRN ×2 (13:04→19:07)
[2018-06-30 13:14] LABS: INR 1.2 INR; PARTIAL THROMBOPLASTIN TIME 24 SECONDS (22-32); PROTHROMBIN TIME 12.4 SECONDS (9.0-12.0)
[2018-06-30 13:19] LABS: ALANINE AMINOTRANSFERASE 16 U/L (12-78); ALBUMIN 2.5 G/DL (3.4-5.0); ALBUMIN/GLOBULIN RATIO 1.1 (1.1-1.5); ALKALINE PHOSPHATASE 54 IU/L (46-116); ANION GAP 7 (8-16); ASPARTATE AMINO TRANSFERASE 34 U/L (10-37); BILIRUBIN,TOTAL 0.8 MG/DL (0.1-1.0); BLOOD UREA NITROGEN 9 MG/DL (7-18); BUN/CREATININE RATIO 15.3 (5.4-32.0); CALCIUM 9.3 MG/DL (8.5-10.1); CHLORIDE 106 MMOL/L (99-107); CREATININE 0.59 MG/DL (0.60-1.10); GLUCOSE 141 MG/DL (70-104); MAGNESIUM 2.4 MG/DL (1.5-2.4); PHOSPHORUS 2.2 MG/DL (2.3-4.5); SODIUM 144 MMOL/L (135-145); TOTAL CARBON DIOXIDE 31.3 MMOL/L (24-32); TOTAL PROTEIN 4.8 G/DL (6.4-8.2); eGFR > 90 ML/MIN
[2018-06-30 13:21] LABS: POTASSIUM 3.5 MMOL/L (3.5-5.1)
[2018-06-30] MEDS: sodium chloride 0.45% 1,000 ML IV SCH (13:30)
[2018-06-30] MEDS: potassium Cl 20mEq/100mL bag 100 ML IV PRN ×2 (13:38→15:31)
[2018-06-30] MEDS: ceFAZolin 1GM/D5W- ADD-VANTAGE 50 ML IV SCH ×2 (16:46→23:21)
[2018-06-30] MEDS: magnesium 1gm/100ml D5W IVPB 100 ML IV PRN ×2 (17:43→19:02)
[2018-06-30 18:27] LABS: BASOPHILS % (AUTO) 0.1 % (0-1); EOSINOPHILS % (AUTO) 0 % (0-6); HEMATOCRIT 33.8 % (42.0-52.0); HEMOGLOBIN 11.1 g/dl (14.0-17.9); LYMPHOCYTES # (AUTO) 0.3 X10'3 (1.1-4.8); MEAN CORPUSCULAR HEMOGLOBIN 28.7 PG (27.0-31.0); MEAN CORPUSCULAR HGB CONC 32.7 % (33.0-36.5); MEAN CORPUSCULAR VOLUME 87.6 FL (78-98); MEAN PLATELET VOLUME 10.3 FL (7.4-10.4); MONOCYTES # (AUTO) 0.4 X10'3 (0-0.9); MONOCYTES % (AUTO) 4.4 % (2-12); NEUTROPHILS % (AUTO) 92.5 % (42-75); PLATELET COUNT 125 X10'3 (140-440); RED BLOOD COUNT 3.86 X10'6 (4.70-6.10); RED CELL DISTRIBUTION WIDTH 13.7 % (11.5-14.5); WHITE BLOOD COUNT 9.7 X10'3 (4.5-11.0)
[2018-06-30 18:36] LABS: ANION GAP 5 (8-16); BLOOD UREA NITROGEN 12 MG/DL (7-18); BUN/CREATININE RATIO 17.9 (5.4-32.0); CHLORIDE 107 MMOL/L (99-107); CREATININE 0.67 MG/DL (0.60-1.10); GLUCOSE 154 MG/DL (70-104); POTASSIUM 4.4 MMOL/L (3.5-5.1); SODIUM 145 MMOL/L (135-145); TOTAL CARBON DIOXIDE 32.9 MMOL/L (24-32); eGFR > 90 ML/MIN
[2018-06-30] MEDS ORDERED: amiodarone 150mg/dext, iso-os 100 ML IV ONE (19:15)
[2018-06-30] MEDS: amiodarone/D5 360MG/200ML BAG 200 ML IV SCH (19:21)
[2018-06-30] MEDS: docusate sod 100mg capsule PO SCH (20:00)
[2018-06-30] MEDS: mupirocin 2% nasal ointment 1gm UD NS SCH (20:05)
[2018-06-30] MEDS: vancomycin/NS 1 GM ADD-VANTAGE 250 ML IV SCH (20:05)
[2018-06-30] MEDS: gabapentin 300mg capsule PO SCH (21:00)
[2018-06-30 23:06] LABS: ABG BASE EXCESS 2.8 mmol/L (-2.0-3.0); ABG HCO3 27.5 mmol/L (22.0-26.0); ABG OXYGEN SATURATION 95.7 % (95-98); FCOHb 0.3 % (0.5-1.5); FO2Hb 95.4 % (94-100); MINUTE VOLUME 7 L/min; PEEP 5 cm H2O; RESPIRATORY RATE (OBSERVED) 16 b/min; TOTAL HEMOGLOBIN 11.1 G/dl (14.0-18.0)
[2018-06-30] MEDS: morphine 4 MG/ML inj SYRINge IV PRN (23:22)
[2018-07-01] VITALS (24 sets, daily range): BP systolic 14–155; BP diastolic 55–89
[2018-07-01] MEDS: insulin regular, human inj. 100 UNITS in normal saline 100ml IV soln 100 ML IV SCH ×2 (01:00)
[2018-07-01] MEDS: amiodarone/D5 360MG/200ML BAG 200 ML IV SCH ×4 (01:04→22:34)
[2018-07-01 03:40] LABS: BASOPHILS % (AUTO) 0.1 % (0-1); EOSINOPHILS # (AUTO) 0.1 X10'3 (0-0.9); EOSINOPHILS % (AUTO) 1.5 % (0-6); HEMATOCRIT 31.8 % (42.0-52.0); HEMOGLOBIN 10.6 g/dl (14.0-17.9); LYMPHOCYTES # (AUTO) 0.6 X10'3 (1.1-4.8); LYMPHOCYTES % (AUTO) 6.2 % (21-51); MEAN CORPUSCULAR HGB CONC 33.3 % (33.0-36.5); MEAN CORPUSCULAR VOLUME 87.3 FL (78-98); MEAN PLATELET VOLUME 10.4 FL (7.4-10.4); MONOCYTES # (AUTO) 0.6 X10'3 (0-0.9); MONOCYTES % (AUTO) 6.1 % (2-12); NEUTROPHILS # (AUTO) 8.1 X10'3 (1.8-7.7); NEUTROPHILS % (AUTO) 86.1 % (42-75); PLATELET COUNT 123 X10'3 (140-440); RED BLOOD COUNT 3.65 X10'6 (4.70-6.10); RED CELL DISTRIBUTION WIDTH 13.7 % (11.5-14.5); WHITE BLOOD COUNT 9.4 X10'3 (4.5-11.0)
[2018-07-01 03:53] LABS: INR 1.1 INR; PARTIAL THROMBOPLASTIN TIME 26 SECONDS (22-32); PROTHROMBIN TIME 11.4 SECONDS (9.0-12.0)
[2018-07-01 03:59] LABS: ALANINE AMINOTRANSFERASE 16 U/L (12-78); ALBUMIN 3.2 G/DL (3.4-5.0); ALBUMIN/GLOBULIN RATIO 1.5 (1.1-1.5); ALKALINE PHOSPHATASE 46 IU/L (46-116); ANION GAP 4 (8-16); ASPARTATE AMINO TRANSFERASE 34 U/L (10-37); BILIRUBIN,TOTAL 0.4 MG/DL (0.1-1.0); BLOOD UREA NITROGEN 14 MG/DL (7-18); BUN/CREATININE RATIO 16.9 (5.4-32.0); CALCIUM 8.5 MG/DL (8.5-10.1); CHLORIDE 107 MMOL/L (99-107); CREATININE 0.83 MG/DL (0.60-1.10); GLUCOSE 141 MG/DL (70-104); MAGNESIUM 1.8 MG/DL (1.5-2.4); PHOSPHORUS 4.5 MG/DL (2.3-4.5); SODIUM 143 MMOL/L (135-145); TOTAL CARBON DIOXIDE 31.9 MMOL/L (24-32); TOTAL PROTEIN 5.3 G/DL (6.4-8.2); eGFR > 90 ML/MIN
[2018-07-01] MEDS: magnesium 4gm in 100ml NS 100 ML IV PRN (04:07)
[2018-07-01] MEDS: potassium Cl 20mEq/100mL bag 100 ML IV PRN (04:15)
[2018-07-01] MEDS: morphine 4 MG/ML inj SYRINge IV PRN (04:39)
[2018-07-01] MEDS: HYDROcodone/acetaminophen 10/325mg tab PO PRN (06:02)
[2018-07-01] MEDS: milrinone (Primacor) 20mg/D5W 100 ML IV PRN (07:32)
[2018-07-01] MEDS: budesonide 0.5mg/2ml UD nebule IH SCH ×2 (07:55→21:03)
[2018-07-01] MEDS ORDERED: metoprolol tartrate 12.5mg (1/2 tablet) PO SCH (08:00)
[2018-07-01] MEDS: venlafaxine XR 75mg capsule (Q24H) PO SCH (08:24)
[2018-07-01] MEDS: pantoprazole 40mg Tablet.DR PO SCH (08:24)
[2018-07-01] MEDS: docusate sod 100mg capsule PO SCH ×2 (08:24→21:15)
[2018-07-01] MEDS: aspirin 325mg tablet, delayed-release (Ecotrin) PO SCH (08:24)
[2018-07-01] MEDS: atorvastatin 10mg tablet PO SCH (08:24)
[2018-07-01] MEDS: ceFAZolin 1GM/D5W- ADD-VANTAGE 50 ML IV SCH ×3 (08:26→23:48)
[2018-07-01] MEDS: mupirocin 2% nasal ointment 1gm UD NS SCH ×2 (08:26→22:34)
[2018-07-01] MEDS: vancomycin/NS 1 GM ADD-VANTAGE 250 ML IV SCH ×2 (08:27→21:15)
[2018-07-01] MEDS: cetirizine 10mg tablet PO SCH (08:32)
[2018-07-01] MEDS: insulin Lispro (HumaLOG) vial - multi-dose SQ SCH ×3 (08:41→19:23)
[2018-07-01] MEDS: ketorolac tromethamine 15mg/ml inj. IV PRN ×2 (09:44→21:14)
[2018-07-01 12:45] LABS: MAGNESIUM 2.5 MG/DL (1.5-2.4); POTASSIUM 5.3 MMOL/L (3.5-5.1)
[2018-07-01] MEDS ORDERED: carVEDilol 3.125mg tablet PO SCH (20:00)
[2018-07-01] MEDS ORDERED: lisinopril 2.5mg tablet PO ONE (21:00)
[2018-07-01] MEDS: gabapentin 300mg capsule PO SCH (21:15)
[2018-07-01] MEDS: insulin glargine (Lantus) pen - multi-dose SQ SCH (21:18)
[2018-07-02] VITALS (24 sets, daily range): BP systolic 94–158; BP diastolic 59–94
[2018-07-02] MEDS: amiodarone/D5 360MG/200ML BAG 200 ML IV SCH ×4 (01:35→19:47)
[2018-07-02 05:04] LABS: BASOPHILS % (AUTO) 0.2 % (0-1); EOSINOPHILS # (AUTO) 0.1 X10'3 (0-0.9); EOSINOPHILS % (AUTO) 0.9 % (0-6); HEMATOCRIT 33.5 % (42.0-52.0); HEMOGLOBIN 10.9 g/dl (14.0-17.9); LYMPHOCYTES % (AUTO) 6.8 % (21-51); MEAN CORPUSCULAR HGB CONC 32.6 % (33.0-36.5); MEAN PLATELET VOLUME 11.8 FL (7.4-10.4); MONOCYTES # (AUTO) 0.9 X10'3 (0-0.9); MONOCYTES % (AUTO) 6.6 % (2-12); NEUTROPHILS # (AUTO) 12.1 X10'3 (1.8-7.7); NEUTROPHILS % (AUTO) 85.5 % (42-75); PLATELET COUNT 132 X10'3 (140-440); RED BLOOD COUNT 3.77 X10'6 (4.70-6.10); RED CELL DISTRIBUTION WIDTH 14.1 % (11.5-14.5); WHITE BLOOD COUNT 14.2 X10'3 (4.5-11.0)
[2018-07-02 05:57] LABS: ANION GAP 7 (8-16); BLOOD UREA NITROGEN 24 MG/DL (7-18); CALCIUM 8.5 MG/DL (8.5-10.1); CHLORIDE 101 MMOL/L (99-107); GLUCOSE 272 MG/DL (70-104); PHOSPHORUS 4.8 MG/DL (2.3-4.5); POTASSIUM 5.5 MMOL/L (3.5-5.1); SODIUM 139 MMOL/L (135-145); TOTAL CARBON DIOXIDE 31.3 MMOL/L (24-32); eGFR > 90 ML/MIN
[2018-07-02] MEDS ORDERED: furosemide 40mg/4ml inj IV ONE (06:50)
[2018-07-02] MEDS: HYDROcodone/acetaminophen 10/325mg tab PO PRN (07:09)
[2018-07-02] MEDS: aspirin 325mg tablet, delayed-release (Ecotrin) PO SCH (07:59)
[2018-07-02] MEDS: pantoprazole 40mg Tablet.DR PO SCH (07:59)
[2018-07-02] MEDS: venlafaxine XR 75mg capsule (Q24H) PO SCH (07:59)
[2018-07-02] MEDS: carvedilol 6.25mg tablet PO SCH ×3 (07:59→20:53)
[2018-07-02] MEDS: atorvastatin 10mg tablet PO SCH (07:59)
[2018-07-02] MEDS: docusate sod 100mg capsule PO SCH ×2 (07:59→20:53)
[2018-07-02] MEDS: mupirocin 2% nasal ointment 1gm UD NS SCH (07:59)
[2018-07-02] MEDS: cetirizine 10mg tablet PO SCH (08:09)
[2018-07-02] MEDS: budesonide 0.5mg/2ml UD nebule IH SCH ×2 (08:37→20:00)
[2018-07-02] MEDS: insulin Lispro (HumaLOG) vial - multi-dose SQ SCH ×3 (09:46→18:53)
[2018-07-02] MEDS: sodium chloride 0.45% 1,000 ML IV SCH (12:27)
[2018-07-02] MEDS: gabapentin 300mg capsule PO SCH (20:53)
[2018-07-02] MEDS: insulin glargine (Lantus) pen - multi-dose SQ SCH (20:58)
[2018-07-02] MEDS: magnesium 4gm in 100ml NS 100 ML IV PRN (20:59)
[2018-07-03] VITALS (15 sets, daily range): BP systolic 93–136; BP diastolic 52–75
[2018-07-03] MEDS: amiodarone/D5 360MG/200ML BAG 200 ML IV SCH (01:51)
[2018-07-03 03:02] LABS: BASOPHILS % (AUTO) 0 % (0-1); EOSINOPHILS % (AUTO) 0.2 % (0-6); HEMATOCRIT 34.9 % (42.0-52.0); HEMOGLOBIN 11.4 g/dl (14.0-17.9); LYMPHOCYTES # (AUTO) 1.2 X10'3 (1.1-4.8); LYMPHOCYTES % (AUTO) 8.5 % (21-51); MEAN CORPUSCULAR HEMOGLOBIN 28.9 PG (27.0-31.0); MEAN CORPUSCULAR HGB CONC 32.6 % (33.0-36.5); MEAN CORPUSCULAR VOLUME 88.6 FL (78-98); MEAN PLATELET VOLUME 11.4 FL (7.4-10.4); MONOCYTES # (AUTO) 1.4 X10'3 (0-0.9); MONOCYTES % (AUTO) 9.8 % (2-12); NEUTROPHILS # (AUTO) 11.2 X10'3 (1.8-7.7); NEUTROPHILS % (AUTO) 81.5 % (42-75); PLATELET COUNT 141 X10'3 (140-440); RED BLOOD COUNT 3.94 X10'6 (4.70-6.10); RED CELL DISTRIBUTION WIDTH 13.9 % (11.5-14.5); WHITE BLOOD COUNT 13.8 X10'3 (4.5-11.0)
[2018-07-03 03:33] LABS: ANION GAP 3 (8-16); BLOOD UREA NITROGEN 22 MG/DL (7-18); BUN/CREATININE RATIO 34.9 (5.4-32.0); CALCIUM 8.4 MG/DL (8.5-10.1); CHLORIDE 100 MMOL/L (99-107); CREATININE 0.63 MG/DL (0.60-1.10); GLUCOSE 126 MG/DL (70-104); MAGNESIUM 2.2 MG/DL (1.5-2.4); PHOSPHORUS 3.9 MG/DL (2.3-4.5); POTASSIUM 4.4 MMOL/L (3.5-5.1); SODIUM 140 MMOL/L (135-145); TOTAL CARBON DIOXIDE 37.1 MMOL/L (24-32); eGFR > 90 ML/MIN
[2018-07-03] MEDS ORDERED: magnesium Cl slow-release 64mg tablet PO PRN (07:20)
[2018-07-03] MEDS ORDERED: magnesium 4gm in 100ml NS 100 ML IV PRN (07:20)
[2018-07-03] MEDS ORDERED: magnesium 1gm/100ml D5W IVPB 100 ML IV PRN (07:20)
[2018-07-03] MEDS ORDERED: potassium Cl 20 mEq SR tablet PO PRN ×2 (07:20)
[2018-07-03] MEDS ORDERED: potassium Cl 40MEQ/NS 500ml 500 ML IV PRN ×2 (07:20)
[2018-07-03] MEDS: budesonide 0.5mg/2ml UD nebule IH SCH ×2 (07:52→21:05)
[2018-07-03] MEDS: K and/or MAG REPLACEMENT MC SCH (08:00)
[2018-07-03] MEDS: docusate sod 100mg capsule PO SCH ×2 (08:00→21:46)
[2018-07-03] MEDS: insulin Lispro (HumaLOG) vial - multi-dose SQ SCH ×3 (08:54→19:09)
[2018-07-03] MEDS: venlafaxine XR 75mg capsule (Q24H) PO SCH (08:55)
[2018-07-03] MEDS: magnesium Cl slow-release 64mg tablet PO SCH ×2 (08:55→20:00)
[2018-07-03] MEDS: potassium Cl 20 mEq SR tablet PO SCH ×2 (08:55→20:00)
[2018-07-03] MEDS: cetirizine 10mg tablet PO SCH (08:56)
[2018-07-03] MEDS: atorvastatin 10mg tablet PO SCH (08:56)
[2018-07-03] MEDS: pantoprazole 40mg Tablet.DR PO SCH (08:56)
[2018-07-03] MEDS: carvedilol 6.25mg tablet PO SCH ×2 (08:56→21:46)
[2018-07-03] MEDS: aspirin 81mg tablet.DR PO SCH (08:56)
[2018-07-03] MEDS: insulin glargine (Lantus) pen - multi-dose SQ SCH (21:41)
[2018-07-03] MEDS: gabapentin 300mg capsule PO SCH (21:45)
[2018-07-04] VITALS (8 sets, daily range): BP systolic 96–127; BP diastolic 49–75
[2018-07-04 06:18] LABS: BASOPHILS % (AUTO) 0.1 % (0-1); EOSINOPHILS # (AUTO) 0.3 X10'3 (0-0.9); EOSINOPHILS % (AUTO) 3.1 % (0-6); HEMATOCRIT 32.9 % (42.0-52.0); HEMOGLOBIN 10.7 g/dl (14.0-17.9); LYMPHOCYTES # (AUTO) 1.3 X10'3 (1.1-4.8); LYMPHOCYTES % (AUTO) 12.6 % (21-51); MEAN CORPUSCULAR HEMOGLOBIN 28.9 PG (27.0-31.0); MEAN CORPUSCULAR HGB CONC 32.6 % (33.0-36.5); MEAN CORPUSCULAR VOLUME 88.6 FL (78-98); MEAN PLATELET VOLUME 10.9 FL (7.4-10.4); MONOCYTES # (AUTO) 1.3 X10'3 (0-0.9); MONOCYTES % (AUTO) 12.6 % (2-12); NEUTROPHILS # (AUTO) 7.1 X10'3 (1.8-7.7); NEUTROPHILS % (AUTO) 71.6 % (42-75); PLATELET COUNT 154 X10'3 (140-440); RED BLOOD COUNT 3.71 X10'6 (4.70-6.10); RED CELL DISTRIBUTION WIDTH 14.1 % (11.5-14.5); WHITE BLOOD COUNT 9.9 X10'3 (4.5-11.0)
[2018-07-04 06:34] LABS: ALBUMIN 2.6 G/DL (3.4-5.0); ANION GAP 0 (8-16); BLOOD UREA NITROGEN 15 MG/DL (7-18); BUN/CREATININE RATIO 27.8 (5.4-32.0); CALCIUM 8.5 MG/DL (8.5-10.1); CHLORIDE 100 MMOL/L (99-107); CREATININE 0.54 MG/DL (0.60-1.10); GLUCOSE 90 MG/DL (70-104); MAGNESIUM 1.6 MG/DL (1.5-2.4); POTASSIUM 4.8 MMOL/L (3.5-5.1); SODIUM 139 MMOL/L (135-145); TOTAL CARBON DIOXIDE 39.4 MMOL/L (24-32); eGFR > 90 ML/MIN
[2018-07-04 07:11] LABS: LARGE PLATELETS FEW; PLATELET ESTIMATE NORMAL
[2018-07-04] MEDS: cetirizine 10mg tablet PO SCH (08:00)
[2018-07-04] MEDS: aspirin 81mg tablet.DR PO SCH (08:00)
[2018-07-04] MEDS: potassium Cl 20 mEq SR tablet PO SCH ×2 (08:00→20:00)
[2018-07-04] MEDS: K and/or MAG REPLACEMENT MC SCH (08:00)
[2018-07-04] MEDS: budesonide 0.5mg/2ml UD nebule IH SCH ×2 (08:14→19:44)
[2018-07-04] MEDS: docusate sod 100mg capsule PO SCH ×2 (09:26→20:41)
[2018-07-04] MEDS: carvedilol 6.25mg tablet PO SCH ×2 (09:27→20:42)
[2018-07-04] MEDS: pantoprazole 40mg Tablet.DR PO SCH (09:27)
[2018-07-04] MEDS: venlafaxine XR 75mg capsule (Q24H) PO SCH (09:29)
[2018-07-04] MEDS: magnesium Cl slow-release 64mg tablet PO SCH ×2 (09:48→20:42)
[2018-07-04] MEDS: atorvastatin 10mg tablet PO SCH (09:48)
[2018-07-04] MEDS: insulin Lispro (HumaLOG) vial - multi-dose SQ SCH ×2 (13:30→19:34)
[2018-07-04] MEDS: gabapentin 300mg capsule PO SCH (20:42)
[2018-07-04] MEDS: insulin glargine (Lantus) pen - multi-dose SQ SCH (22:04)
[2018-07-05 03:00] VITALS: BP 101/49
[2018-07-05 05:05] LABS: BASOPHILS % (AUTO) 0.5 % (0-1); EOSINOPHILS # (AUTO) 0.3 X10'3 (0-0.9); EOSINOPHILS % (AUTO) 4.3 % (0-6); HEMOGLOBIN 10.2 g/dl (14.0-17.9); LYMPHOCYTES % (AUTO) 13.9 % (21-51); MEAN CORPUSCULAR HEMOGLOBIN 28.7 PG (27.0-31.0); MEAN CORPUSCULAR HGB CONC 32.8 % (33.0-36.5); MEAN CORPUSCULAR VOLUME 87.3 FL (78-98); MEAN PLATELET VOLUME 10.2 FL (7.4-10.4); MONOCYTES # (AUTO) 0.9 X10'3 (0-0.9); MONOCYTES % (AUTO) 12.2 % (2-12); NEUTROPHILS % (AUTO) 69.1 % (42-75); PLATELET COUNT 200 X10'3 (140-440); RED BLOOD COUNT 3.55 X10'6 (4.70-6.10); RED CELL DISTRIBUTION WIDTH 13.5 % (11.5-14.5); WHITE BLOOD COUNT 7.3 X10'3 (4.5-11.0)
[2018-07-05 05:46] LABS: ALBUMIN 2.4 G/DL (3.4-5.0); BLOOD UREA NITROGEN 9 MG/DL (7-18); BUN/CREATININE RATIO 24.3 (5.4-32.0); CALCIUM 8.6 MG/DL (8.5-10.1); CHLORIDE 100 MMOL/L (99-107); CREATININE 0.37 MG/DL (0.60-1.10); GLUCOSE 80 MG/DL (70-104); MAGNESIUM 1.6 MG/DL (1.5-2.4); POTASSIUM 3.9 MMOL/L (3.5-5.1); SODIUM 139 MMOL/L (135-145); eGFR > 90 ML/MIN
[2018-07-05 06:00] VITALS: BP 124/73
[2018-07-05 06:03] LABS: ANION GAP 1 (8-16); TOTAL CARBON DIOXIDE 38.1 MMOL/L (24-32)
[2018-07-05 07:37] LABS: PATIENT TEMPERATURE 36.9
[2018-07-05 07:39] LABS: ABG PH (T) 7.425 (7.350-7.450)
[2018-07-05 07:40] LABS: ABG PCO2 (T) 42.8 mmHg (35.0-48.0)
[2018-07-05] MEDS: K and/or MAG REPLACEMENT MC SCH (08:00)
[2018-07-05] MEDS: budesonide 0.5mg/2ml UD nebule IH SCH ×2 (08:05→20:34)
[2018-07-05] MEDS: pantoprazole 40mg Tablet.DR PO SCH (09:30)
[2018-07-05] MEDS: venlafaxine XR 75mg capsule (Q24H) PO SCH (09:30)
[2018-07-05] MEDS: docusate sod 100mg capsule PO SCH ×2 (09:30→19:40)
[2018-07-05] MEDS: magnesium Cl slow-release 64mg tablet PO SCH ×2 (09:30→19:40)
[2018-07-05] MEDS: carvedilol 6.25mg tablet PO SCH ×2 (09:30→19:40)
[2018-07-05] MEDS: atorvastatin 10mg tablet PO SCH (09:31)
[2018-07-05] MEDS: aspirin 81mg tablet.DR PO SCH (09:31)
[2018-07-05] MEDS: cetirizine 10mg tablet PO SCH (09:31)
[2018-07-05] MEDS: insulin Lispro (HumaLOG) vial - multi-dose SQ SCH ×3 (09:35→19:40)
[2018-07-05] MEDS: HYDROcodone/acetaminophen 10/325mg tab PO PRN (09:43)
[2018-07-05 11:00] VITALS: BP 118/68
[2018-07-05] MEDS: potassium Cl 20 mEq SR tablet PO SCH ×2 (11:09→19:40)
[2018-07-05 15:48] VITALS: BP 136/71
[2018-07-05 19:00] VITALS: BP 131/68
[2018-07-05] MEDS: gabapentin 300mg capsule PO SCH (21:52)
[2018-07-05] MEDS: insulin glargine (Lantus) pen - multi-dose SQ SCH (22:00)
[2018-07-05 23:00] VITALS: BP 118/60
[2018-07-06 03:00] VITALS: BP 133/72
[2018-07-06 04:50] LABS: BASOPHILS % (AUTO) 0.3 % (0-1); EOSINOPHILS # (AUTO) 0.4 X10'3 (0-0.9); EOSINOPHILS % (AUTO) 4.6 % (0-6); HEMATOCRIT 33.2 % (42.0-52.0); HEMOGLOBIN 10.9 g/dl (14.0-17.9); LYMPHOCYTES # (AUTO) 1.2 X10'3 (1.1-4.8); LYMPHOCYTES % (AUTO) 14.8 % (21-51); MEAN CORPUSCULAR HEMOGLOBIN 28.9 PG (27.0-31.0); MEAN CORPUSCULAR HGB CONC 32.9 % (33.0-36.5); MEAN CORPUSCULAR VOLUME 87.7 FL (78-98); MEAN PLATELET VOLUME 9.7 FL (7.4-10.4); MONOCYTES # (AUTO) 0.9 X10'3 (0-0.9); MONOCYTES % (AUTO) 11.2 % (2-12); NEUTROPHILS # (AUTO) 5.7 X10'3 (1.8-7.7); NEUTROPHILS % (AUTO) 69.1 % (42-75); PLATELET COUNT 258 X10'3 (140-440); RED BLOOD COUNT 3.79 X10'6 (4.70-6.10); RED CELL DISTRIBUTION WIDTH 13.8 % (11.5-14.5); WHITE BLOOD COUNT 8.3 X10'3 (4.5-11.0)
[2018-07-06 05:17] LABS: ALBUMIN 2.6 G/DL (3.4-5.0); ANION GAP 1 (8-16); BLOOD UREA NITROGEN 9 MG/DL (7-18); BUN/CREATININE RATIO 17.3 (5.4-32.0); CHLORIDE 98 MMOL/L (99-107); CREATININE 0.52 MG/DL (0.60-1.10); GLUCOSE 121 MG/DL (70-104); MAGNESIUM 1.5 MG/DL (1.5-2.4); SODIUM 138 MMOL/L (135-145); TOTAL CARBON DIOXIDE 39.2 MMOL/L (24-32); eGFR > 90 ML/MIN
[2018-07-06 05:19] LABS: POTASSIUM 4.7 MMOL/L (3.5-5.1)
[2018-07-06 06:00] VITALS: BP 142/82
[2018-07-06] MEDS: HYDROcodone/acetaminophen 10/325mg tab PO PRN (07:22)
[2018-07-06] MEDS: potassium Cl 20 mEq SR tablet PO SCH (08:00)
[2018-07-06] MEDS: K and/or MAG REPLACEMENT MC SCH (08:00)
[2018-07-06] MEDS: insulin Lispro (HumaLOG) vial - multi-dose SQ SCH ×2 (09:31→13:20)
[2018-07-06] MEDS: aspirin 81mg tablet.DR PO SCH (09:33)
[2018-07-06] MEDS: pantoprazole 40mg Tablet.DR PO SCH (09:33)
[2018-07-06] MEDS: venlafaxine XR 75mg capsule (Q24H) PO SCH (09:33)
[2018-07-06] MEDS: docusate sod 100mg capsule PO SCH (09:33)
[2018-07-06] MEDS: magnesium Cl slow-release 64mg tablet PO SCH (09:33)
[2018-07-06] MEDS: cetirizine 10mg tablet PO SCH (09:34)
[2018-07-06] MEDS: atorvastatin 10mg tablet PO SCH (09:34)
[2018-07-06] MEDS: carvedilol 6.25mg tablet PO SCH (09:34)
[2018-07-06] MEDS: budesonide 0.5mg/2ml UD nebule IH SCH (10:45)
[2018-07-06 11:00] VITALS: BP 120/61
[2018-07-06 15:00] VITALS: BP 118/66
== END 2018-07-06 15:40 | DRG 233 ==
LOC: ER 13:26 → ED HOLD 19:50 → PCU 3S 20:34 → PACU 06-30 07:05 → CICU 2S 06-30 12:37 → PCU 3S 07-03 11:27
PROVIDERS: ADMIT Internal Medicine; ATTEND Thoracic Surgery (Cardiothoracic Vascular Surgery)
PROC: B3201ZZ Computerized Tomography (CT Scan) of Thoracic Aorta using Low Osmolar Contrast (ICD-10-PCS; 2018-06-24)
PROC: 4A023N7 Measurement of Cardiac Sampling and Pressure, Left Heart, Percutaneous Approach (ICD-10-PCS; 2018-06-26)
PROC: 4A02XM4 Measurement of Cardiac Total Activity, External Approach (ICD-10-PCS; 2018-06-26)
PROC: 3E033HZ Introduction of Radioactive Substance into Peripheral Vein, Percutaneous Approach (ICD-10-PCS; 2018-06-26)
PROC: B2111ZZ Fluoroscopy of Multiple Coronary Arteries using Low Osmolar Contrast (ICD-10-PCS; 2018-06-26)
PROC: B2151ZZ Fluoroscopy of Left Heart using Low Osmolar Contrast (ICD-10-PCS; 2018-06-26)
PROC: B3101ZZ Fluoroscopy of Thoracic Aorta using Low Osmolar Contrast (ICD-10-PCS; 2018-06-26)
PROC: B3111ZZ Fluoroscopy of Right Brachiocephalic-Subclavian Artery using Low Osmolar Contrast (ICD-10-PCS; 2018-06-26)
PROC: B3121ZZ Fluoroscopy of Left Subclavian Artery using Low Osmolar Contrast (ICD-10-PCS; 2018-06-26)
PROC: 021209W Bypass Coronary Artery, Three Arteries from Aorta with Autologous Venous Tissue, Open Approach (ICD-10-PCS; 2018-06-30)
PROC: 06BQ4ZZ Excision of Left Saphenous Vein, Percutaneous Endoscopic Approach (ICD-10-PCS; 2018-06-30)
PROC: 5A1221Z Performance of Cardiac Output, Continuous (ICD-10-PCS; 2018-06-30)
PROC: B24BZZ4 Ultrasonography of Heart with Aorta, Transesophageal (ICD-10-PCS; 2018-06-30)
PROC: 02HV33Z Insertion of Infusion Device into Superior Vena Cava, Percutaneous Approach (ICD-10-PCS; 2018-06-30)
PROC: 02100Z9 Bypass Coronary Artery, One Artery from Left Internal Mammary, Open Approach (ICD-10-PCS; principal; 2018-06-30 07:06)
PROC: 0W993ZZ Drainage of Right Pleural Cavity, Percutaneous Approach (ICD-10-PCS; 2018-07-04)
DX: I25.110 Atherosclerotic heart disease of native coronary artery with unstable angina pectoris (principal); I50.43 Acute on chronic combined systolic (congestive) and diastolic (congestive) heart failure; J98.11 Atelectasis; J44.9 Chronic obstructive pulmonary disease, unspecified; G47.33 Obstructive sleep apnea (adult) (pediatric); I11.0 Hypertensive heart disease with heart failure; I25.5 Ischemic cardiomyopathy; E11.51 Type 2 diabetes mellitus with diabetic peripheral angiopathy without gangrene; E78.00 Pure hypercholesterolemia, unspecified; E78.5 Hyperlipidemia, unspecified; I49.3 Ventricular premature depolarization; R94.39 Abnormal result of other cardiovascular function study; F32.9 Major depressive disorder, single episode, unspecified; Z66 Do not resuscitate; I67.9 Cerebrovascular disease, unspecified; E11.65 Type 2 diabetes mellitus with hyperglycemia; K21.9 Gastro-esophageal reflux disease without esophagitis; M19.90 Unspecified osteoarthritis, unspecified site; I25.2 Old myocardial infarction; Z99.81 Dependence on supplemental oxygen; Z79.899 Other long term (current) drug therapy; Z79.82 Long term (current) use of aspirin; Z87.891 Personal history of nicotine dependence; Z87.01 Personal history of pneumonia (recurrent); Z80.42 Family history of malignant neoplasm of prostate
CPT/HCPCS: 0232T; 32555; 93306; 93312; 93325; 93458; 93567; 99285; 36415; 36600; 70450; 71045; 71275; 78452; 80048; 80053; 82330; 82435; 82803; 82947; 82948; 83036; 83735; 84100; 84132; 84295; 84484; 85018; 85025; 85347; 85379; 85384; 85610; 85730; 86885; 86900; 86901; 86920; 87070; 93005; 93017; 93880; 93971; 94002; 94003; 94060; 94640; 94667; 94668; 94760; 97110; 97116; 97161; 97530; 99152; 99153; A4620; A6213; A6255; A6257; A6258; A6402; A6449; A7000; A7015; A7048; A9500; C1751; C1760; C1769; J0282; J0690; J1644; J1650; J1815; J1885; J1940; J2060; J2150; J2250; J2260; J2270; J2370; J2405; J2440; J2704; J3010; J3370; J3475; J3480; J3490; J7030; J7120; J7626; P9045; P9047; Q9967

== ENCOUNTER 2018-07-09 11:22 | Inpatient (IN) | payer MEDICARE, OTHER ==
[~2018-07-09] VITALS: Ht 162.6 cm; Wt 82.0 kg
[~2018-07-09 11:22] MED LIST: ALBU8HFA PO; ASPI-41 PO; BUDE0.5A11 NEB; CETI1SOL48 PO; CHOL400T32 PO; FENO145T36 PO; GABA-532 PO; IBUP-1984 PO; LACT1CAP65 PO; LIDO700A32; LOSA25TA96 PO; METF500T PO; OMEG1CAP PO; PANT-47 PO; PARA500W MC; SAXA1TBM2 PO; SAXA5TAB PO; TIOT18CA3 INH; VENL-190; [UNRECOGNIZED DRUG - OTHER] SUBCUT
[2018-07-09] MEDS ORDERED: diltiazem 5mg/ml 5ml inj. IV ONE (11:35)
[2018-07-09] MEDS ORDERED: diltiazem 30mg tablet PO ONE (11:35)
[2018-07-09] MEDS ORDERED: furosemide 10 MG/1 ML 10ml inj IV ONE (11:35)
[2018-07-09 11:46] LABS: BASOPHILS # (AUTO) 0.1 X10'3 (0-0.2); BASOPHILS % (AUTO) 0.7 % (0-1); EOSINOPHILS # (AUTO) 0.1 X10'3 (0-0.9); EOSINOPHILS % (AUTO) 0.9 % (0-6); HEMATOCRIT 33.5 % (42.0-52.0); HEMOGLOBIN 11.3 g/dl (14.0-17.9); LYMPHOCYTES # (AUTO) 1.2 X10'3 (1.1-4.8); MEAN CORPUSCULAR HEMOGLOBIN 30.1 PG (27.0-31.0); MEAN CORPUSCULAR HGB CONC 33.8 % (33.0-36.5); MEAN CORPUSCULAR VOLUME 89.2 FL (78-98); MEAN PLATELET VOLUME 8.9 FL (7.4-10.4); MONOCYTES # (AUTO) 0.8 X10'3 (0-0.9); MONOCYTES % (AUTO) 8.2 % (2-12); NEUTROPHILS # (AUTO) 7.9 X10'3 (1.8-7.7); NEUTROPHILS % (AUTO) 78.2 % (42-75); PLATELET COUNT 346 X10'3 (140-440); RED BLOOD COUNT 3.75 X10'6 (4.70-6.10); RED CELL DISTRIBUTION WIDTH 13.1 % (11.5-14.5); WHITE BLOOD COUNT 10.1 X10'3 (4.5-11.0)
[2018-07-09 11:56] LABS: INR 1.1 INR; PARTIAL THROMBOPLASTIN TIME 28 SECONDS (22-32)
[2018-07-09 12:02] LABS: ALANINE AMINOTRANSFERASE 24 U/L (12-78); ALBUMIN 2.6 G/DL (3.4-5.0); ALBUMIN/GLOBULIN RATIO 0.7 (1.1-1.5); ALKALINE PHOSPHATASE 155 IU/L (46-116); ANION GAP 1 (8-16); ASPARTATE AMINO TRANSFERASE 17 U/L (10-37); BILIRUBIN,TOTAL 0.3 MG/DL (0.1-1.0); BLOOD UREA NITROGEN 9 MG/DL (7-18); BUN/CREATININE RATIO 15.5 (5.4-32.0); CALCIUM 8.9 MG/DL (8.5-10.1); CHLORIDE 97 MMOL/L (99-107); CREATININE 0.58 MG/DL (0.60-1.10); GLUCOSE 179 MG/DL (70-104); POTASSIUM 4.6 MMOL/L (3.5-5.1); SODIUM 136 MMOL/L (135-145); TOTAL CARBON DIOXIDE 38.5 MMOL/L (24-32); TOTAL PROTEIN 6.1 G/DL (6.4-8.2); eGFR > 90 ML/MIN
[2018-07-09] MEDS ORDERED: enoxaparin 100mg/ml syringe SUBCUT ONE (12:40)
[2018-07-09] MEDS ORDERED: ondansetron/PF 4mg/2ml inj IV PRN (13:40)
[2018-07-09] MEDS ORDERED: magnesium Cl slow-release 64mg tablet PO PRN (13:40)
[2018-07-09] MEDS ORDERED: mag hydrox/Alum hydrox/simeth 30ml oral suspension PO PRN (13:40)
[2018-07-09] MEDS ORDERED: docusate sod 100mg capsule PO PRN (13:40)
[2018-07-09] MEDS ORDERED: magnesium 1gm/100ml D5W IVPB 100 ML IV PRN (13:40)
[2018-07-09] MEDS ORDERED: acetaminophen 325mg tablet PO PRN ×2 (13:40)
[2018-07-09] MEDS ORDERED: magnesium 4gm in 100ml NS 100 ML IV PRN (13:40)
[2018-07-09] MEDS ORDERED: potassium Cl 40MEQ/NS 500ml 500 ML IV PRN ×2 (13:40)
[2018-07-09] MEDS ORDERED: potassium Cl 20 mEq SR tablet PO PRN ×2 (13:40)
[2018-07-09] MEDS ORDERED: normal saline 1000ml 1,000 ML IV SCH (13:50)
[2018-07-09] MEDS ORDERED: CHOL10002 PO (13:53)
[2018-07-09] MEDS ORDERED: metoprolol tartrate 1mg/ml inj IV ONE (14:00)
[2018-07-09 14:30] LABS: LACTATE DEHYDROGENASE 293 U/L (85-227)
[2018-07-09] MEDS ORDERED: ipratropium 0.5 MG/2.5ML nebule IH PRN (14:50)
[2018-07-09 15:00] VITALS: BP 101/64
[2018-07-09] MEDS: levalbuterol 0.63mg/3ml nebule IH SCH ×2 (15:00→20:23)
[2018-07-09] MEDS ORDERED: MESSAGE TO PHARMACY PO ONE (16:00)
[2018-07-09] MEDS ORDERED: dextrose 50%-water 50ml dispensing syringe IV PRN ×2 (16:00)
[2018-07-09] MEDS ORDERED: glucagon, human recombinant 1mg kit SUBCUT PRN (16:00)
[2018-07-09] MEDS ORDERED: dextrose ORAL solution 15 GM/59 ML bottle PO PRN ×2 (16:00)
[2018-07-09 16:46] LABS: HEMOGLOBIN A1C 9.6 % (4.5-6.2)
[2018-07-09 18:00] VITALS: BP 106/62
[2018-07-09] MEDS ORDERED: diltiazem SR 60mg capsule (twice daily) PO SCH (20:00)
[2018-07-09] MEDS: lactobacillus rhamnosus 10,000 MMU CELLS/CAPSULE PO SCH (20:30)
[2018-07-09] MEDS: gabapentin 300mg capsule PO SCH (20:31)
[2018-07-09] MEDS: carVEDilol 3.125mg tablet PO SCH (20:31)
[2018-07-09] MEDS: atorvastatin 10mg tablet PO SCH (20:31)
[2018-07-09] MEDS: heparin, porcine 5000 units/ml vial SQ SCH (20:34)
[2018-07-09] MEDS: insulin glargine (Lantus) pen - multi-dose SQ SCH (21:00)
[2018-07-09] MEDS ORDERED: temazepam 15mg capsule PO PRN (21:00)
[2018-07-09 22:00] VITALS: BP 137/77
[2018-07-10] VITALS (17 sets, daily range): BP systolic 103–156; BP diastolic 59–102
[2018-07-10] MEDS: levalbuterol 0.63mg/3ml nebule IH SCH ×4 (02:35→20:55)
[2018-07-10 05:57] LABS: BASOPHILS % (AUTO) 0.2 % (0-1); EOSINOPHILS # (AUTO) 0.3 X10'3 (0-0.9); EOSINOPHILS % (AUTO) 3.2 % (0-6); HEMATOCRIT 32.3 % (42.0-52.0); HEMOGLOBIN 10.7 g/dl (14.0-17.9); LYMPHOCYTES # (AUTO) 1.5 X10'3 (1.1-4.8); LYMPHOCYTES % (AUTO) 15.9 % (21-51); MEAN CORPUSCULAR HEMOGLOBIN 29.1 PG (27.0-31.0); MEAN CORPUSCULAR HGB CONC 33.1 % (33.0-36.5); MEAN CORPUSCULAR VOLUME 87.9 FL (78-98); MONOCYTES % (AUTO) 10.9 % (2-12); NEUTROPHILS # (AUTO) 6.5 X10'3 (1.8-7.7); NEUTROPHILS % (AUTO) 69.8 % (42-75); PLATELET COUNT 369 X10'3 (140-440); RED BLOOD COUNT 3.67 X10'6 (4.70-6.10); RED CELL DISTRIBUTION WIDTH 14.1 % (11.5-14.5); WHITE BLOOD COUNT 9.4 X10'3 (4.5-11.0)
[2018-07-10 06:10] LABS: INR 1.1 INR; PROTHROMBIN TIME 11.4 SECONDS (9.0-12.0)
[2018-07-10 06:15] LABS: ALBUMIN 2.5 G/DL (3.4-5.0); ANION GAP 1 (8-16); BLOOD UREA NITROGEN 11 MG/DL (7-18); BUN/CREATININE RATIO 21.2 (5.4-32.0); CALCIUM 9.3 MG/DL (8.5-10.1); CHLORIDE 100 MMOL/L (99-107); CREATININE 0.52 MG/DL (0.60-1.10); GLUCOSE 111 MG/DL (70-104); MAGNESIUM 1.5 MG/DL (1.5-2.4); POTASSIUM 4.1 MMOL/L (3.5-5.1); SODIUM 139 MMOL/L (135-145); TOTAL CARBON DIOXIDE 38.4 MMOL/L (24-32); eGFR > 90 ML/MIN
[2018-07-10] MEDS ORDERED: fenofibrate 145mg tablet PO SCH (08:00)
[2018-07-10] MEDS: K and/or MAG REPLACEMENT MC SCH (08:00)
[2018-07-10] MEDS: carVEDilol 3.125mg tablet PO SCH ×2 (08:08→20:38)
[2018-07-10] MEDS: pantoprazole 40mg Tablet.DR PO SCH (08:08)
[2018-07-10] MEDS: venlafaxine XR 75mg capsule (Q24H) PO SCH (08:08)
[2018-07-10] MEDS: lactobacillus rhamnosus 10,000 MMU CELLS/CAPSULE PO SCH ×2 (08:09→20:38)
[2018-07-10] MEDS: aspirin 325mg tablet PO SCH (08:09)
[2018-07-10] MEDS: heparin, porcine 5000 units/ml vial SQ SCH ×2 (08:09→20:38)
[2018-07-10] MEDS ORDERED: metoprolol tartrate 1mg/ml inj IV ONE (09:30)
[2018-07-10] MEDS ORDERED: amiodarone 150mg/dext, iso-os 100 ML IV ONE (10:30)
[2018-07-10] MEDS ORDERED: furosemide 40mg/4ml inj IV ONE (10:45)
[2018-07-10] MEDS: amiodarone/D5 360MG/200ML BAG 200 ML IV SCH ×2 (11:21→17:24)
[2018-07-10] MEDS: insulin Lispro (HumaLOG) vial - multi-dose SQ SCH ×2 (13:48→18:35)
[2018-07-10] MEDS: magnesium 1gm/100ml D5W IVPB 100 ML IV SCH ×2 (14:16→15:15)
[2018-07-10] MEDS: atorvastatin 10mg tablet PO SCH (20:38)
[2018-07-10] MEDS: gabapentin 300mg capsule PO SCH (20:38)
[2018-07-10] MEDS: furosemide 40mg/4ml inj IV SCH (20:39)
[2018-07-10] MEDS: insulin glargine (Lantus) pen - multi-dose SQ SCH (21:00)
[2018-07-11] VITALS (7 sets, daily range): BP systolic 105–132; BP diastolic 53–78
[2018-07-11] MEDS: levalbuterol 0.63mg/3ml nebule IH SCH ×4 (03:17→20:24)
[2018-07-11] MEDS: amiodarone/D5 360MG/200ML BAG 200 ML IV SCH ×2 (04:42→05:47)
[2018-07-11 06:23] LABS: BASOPHILS % (AUTO) 0.3 % (0-1); EOSINOPHILS # (AUTO) 0.3 X10'3 (0-0.9); EOSINOPHILS % (AUTO) 3.1 % (0-6); HEMATOCRIT 32.2 % (42.0-52.0); HEMOGLOBIN 10.6 g/dl (14.0-17.9); LYMPHOCYTES # (AUTO) 1.6 X10'3 (1.1-4.8); LYMPHOCYTES % (AUTO) 15.2 % (21-51); MEAN CORPUSCULAR HEMOGLOBIN 28.6 PG (27.0-31.0); MEAN CORPUSCULAR HGB CONC 32.9 % (33.0-36.5); MEAN CORPUSCULAR VOLUME 86.9 FL (78-98); MEAN PLATELET VOLUME 8.9 FL (7.4-10.4); MONOCYTES # (AUTO) 0.9 X10'3 (0-0.9); MONOCYTES % (AUTO) 8.4 % (2-12); NEUTROPHILS # (AUTO) 7.5 X10'3 (1.8-7.7); PLATELET COUNT 393 X10'3 (140-440); RED CELL DISTRIBUTION WIDTH 13.8 % (11.5-14.5); WHITE BLOOD COUNT 10.2 X10'3 (4.5-11.0)
[2018-07-11 06:29] LABS: INR 1.1 INR; PROTHROMBIN TIME 11.3 SECONDS (9.0-12.0)
[2018-07-11 06:36] LABS: ALBUMIN 2.7 G/DL (3.4-5.0); ANION GAP 1 (8-16); BLOOD UREA NITROGEN 13 MG/DL (7-18); BUN/CREATININE RATIO 22.8 (5.4-32.0); CALCIUM 8.7 MG/DL (8.5-10.1); CHLORIDE 96 MMOL/L (99-107); CREATININE 0.57 MG/DL (0.60-1.10); GLUCOSE 139 MG/DL (70-104); MAGNESIUM 1.6 MG/DL (1.5-2.4); POTASSIUM 3.9 MMOL/L (3.5-5.1); SODIUM 136 MMOL/L (135-145); TOTAL CARBON DIOXIDE 39.2 MMOL/L (24-32); eGFR > 90 ML/MIN
[2018-07-11] MEDS: K and/or MAG REPLACEMENT MC SCH (08:00)
[2018-07-11] MEDS: venlafaxine XR 75mg capsule (Q24H) PO SCH (08:38)
[2018-07-11] MEDS: pantoprazole 40mg Tablet.DR PO SCH (08:38)
[2018-07-11] MEDS: carVEDilol 3.125mg tablet PO SCH ×2 (08:38→19:04)
[2018-07-11] MEDS: lactobacillus rhamnosus 10,000 MMU CELLS/CAPSULE PO SCH ×2 (08:39→19:04)
[2018-07-11] MEDS: aspirin 325mg tablet PO SCH (08:39)
[2018-07-11] MEDS: heparin, porcine 5000 units/ml vial SQ SCH ×2 (08:40→19:05)
[2018-07-11] MEDS: furosemide 40mg/4ml inj IV SCH ×2 (08:40→19:04)
[2018-07-11] MEDS: insulin Lispro (HumaLOG) vial - multi-dose SQ SCH ×3 (09:03→19:00)
[2018-07-11] MEDS: amiodarone 200mg tablet PO SCH (19:04)
[2018-07-11] MEDS: atorvastatin 10mg tablet PO SCH (21:18)
[2018-07-11] MEDS: insulin glargine (Lantus) pen - multi-dose SQ SCH (21:18)
[2018-07-11] MEDS: gabapentin 300mg capsule PO SCH (21:18)
[2018-07-12] MEDS: levalbuterol 0.63mg/3ml nebule IH SCH ×4 (02:22→20:24)
[2018-07-12 03:00] VITALS: BP 131/70
[2018-07-12 06:17] LABS: BASOPHILS % (AUTO) 0.3 % (0-1); EOSINOPHILS # (AUTO) 0.4 X10'3 (0-0.9); EOSINOPHILS % (AUTO) 3.2 % (0-6); HEMATOCRIT 32.1 % (42.0-52.0); HEMOGLOBIN 10.7 g/dl (14.0-17.9); LYMPHOCYTES # (AUTO) 1.6 X10'3 (1.1-4.8); LYMPHOCYTES % (AUTO) 14.4 % (21-51); MEAN CORPUSCULAR HEMOGLOBIN 28.8 PG (27.0-31.0); MEAN CORPUSCULAR HGB CONC 33.2 % (33.0-36.5); MEAN CORPUSCULAR VOLUME 86.7 FL (78-98); MEAN PLATELET VOLUME 8.1 FL (7.4-10.4); MONOCYTES # (AUTO) 0.9 X10'3 (0-0.9); MONOCYTES % (AUTO) 8.1 % (2-12); NEUTROPHILS # (AUTO) 8.2 X10'3 (1.8-7.7); PLATELET COUNT 400 X10'3 (140-440); RED CELL DISTRIBUTION WIDTH 13.5 % (11.5-14.5)
[2018-07-12 06:23] LABS: INR 1.1 INR; PROTHROMBIN TIME 11.3 SECONDS (9.0-12.0)
[2018-07-12 06:29] LABS: ALBUMIN 2.8 G/DL (3.4-5.0); ANION GAP 2 (8-16); BLOOD UREA NITROGEN 10 MG/DL (7-18); BUN/CREATININE RATIO 17.5 (5.4-32.0); CALCIUM 8.5 MG/DL (8.5-10.1); CHLORIDE 94 MMOL/L (99-107); CREATININE 0.57 MG/DL (0.60-1.10); GLUCOSE 134 MG/DL (70-104); MAGNESIUM 1.6 MG/DL (1.5-2.4); SODIUM 135 MMOL/L (135-145); TOTAL CARBON DIOXIDE 39.5 MMOL/L (24-32); eGFR > 90 ML/MIN
[2018-07-12 06:30] VITALS: BP 139/72
[2018-07-12] MEDS: K and/or MAG REPLACEMENT MC SCH (08:00)
[2018-07-12] MEDS: aspirin 325mg tablet PO SCH (08:54)
[2018-07-12] MEDS: furosemide 40mg/4ml inj IV SCH ×2 (08:54→20:40)
[2018-07-12] MEDS: venlafaxine XR 75mg capsule (Q24H) PO SCH (08:54)
[2018-07-12] MEDS: carVEDilol 3.125mg tablet PO SCH ×2 (08:54→20:40)
[2018-07-12] MEDS: pantoprazole 40mg Tablet.DR PO SCH (08:54)
[2018-07-12] MEDS: amiodarone 200mg tablet PO SCH ×2 (08:54→20:40)
[2018-07-12] MEDS: lactobacillus rhamnosus 10,000 MMU CELLS/CAPSULE PO SCH ×2 (08:54→20:40)
[2018-07-12] MEDS: heparin, porcine 5000 units/ml vial SQ SCH ×2 (08:55→20:43)
[2018-07-12] MEDS: insulin Lispro (HumaLOG) vial - multi-dose SQ SCH ×3 (09:03→18:41)
[2018-07-12 11:00] VITALS: BP 134/63
[2018-07-12 15:00] VITALS: BP 133/76
[2018-07-12 19:00] VITALS: BP 138/61
[2018-07-12] MEDS: gabapentin 300mg capsule PO SCH (20:40)
[2018-07-12] MEDS: atorvastatin 10mg tablet PO SCH (20:40)
[2018-07-12] MEDS: insulin glargine (Lantus) pen - multi-dose SQ SCH (22:12)
[2018-07-12 23:00] VITALS: BP 123/63
[2018-07-13] MEDS: levalbuterol 0.63mg/3ml nebule IH SCH ×2 (02:38→08:02)
[2018-07-13 03:00] VITALS: BP 152/65
[2018-07-13 05:34] LABS: BASOPHILS % (AUTO) 0.2 % (0-1); EOSINOPHILS # (AUTO) 0.3 X10'3 (0-0.9); EOSINOPHILS % (AUTO) 3.5 % (0-6); HEMATOCRIT 32.2 % (42.0-52.0); HEMOGLOBIN 10.7 g/dl (14.0-17.9); LYMPHOCYTES # (AUTO) 1.2 X10'3 (1.1-4.8); LYMPHOCYTES % (AUTO) 12.5 % (21-51); MEAN CORPUSCULAR HEMOGLOBIN 28.8 PG (27.0-31.0); MEAN CORPUSCULAR HGB CONC 33.1 % (33.0-36.5); MEAN CORPUSCULAR VOLUME 86.8 FL (78-98); MEAN PLATELET VOLUME 8.6 FL (7.4-10.4); MONOCYTES # (AUTO) 0.9 X10'3 (0-0.9); NEUTROPHILS # (AUTO) 6.8 X10'3 (1.8-7.7); NEUTROPHILS % (AUTO) 73.8 % (42-75); PLATELET COUNT 376 X10'3 (140-440); RED BLOOD COUNT 3.71 X10'6 (4.70-6.10); RED CELL DISTRIBUTION WIDTH 13.5 % (11.5-14.5); WHITE BLOOD COUNT 9.2 X10'3 (4.5-11.0)
[2018-07-13 05:52] LABS: INR 1.1 INR; PROTHROMBIN TIME 11.2 SECONDS (9.0-12.0)
[2018-07-13 06:15] LABS: ALBUMIN 2.8 G/DL (3.4-5.0); ANION GAP 4 (8-16); BLOOD UREA NITROGEN 13 MG/DL (7-18); BUN/CREATININE RATIO 22.8 (5.4-32.0); CALCIUM 9.3 MG/DL (8.5-10.1); CHLORIDE 94 MMOL/L (99-107); CREATININE 0.57 MG/DL (0.60-1.10); GLUCOSE 163 MG/DL (70-104); MAGNESIUM 1.4 MG/DL (1.5-2.4); POTASSIUM 3.8 MMOL/L (3.5-5.1); SODIUM 137 MMOL/L (135-145); TOTAL CARBON DIOXIDE 39.5 MMOL/L (24-32); eGFR > 90 ML/MIN
[2018-07-13 06:58] VITALS: BP 150/82
[2018-07-13] MEDS: lactobacillus rhamnosus 10,000 MMU CELLS/CAPSULE PO SCH (07:55)
[2018-07-13] MEDS: amiodarone 200mg tablet PO SCH (07:55)
[2018-07-13] MEDS: pantoprazole 40mg Tablet.DR PO SCH (07:55)
[2018-07-13] MEDS: carVEDilol 3.125mg tablet PO SCH (07:55)
[2018-07-13] MEDS: venlafaxine XR 75mg capsule (Q24H) PO SCH (07:55)
[2018-07-13] MEDS: aspirin 325mg tablet PO SCH (07:55)
[2018-07-13] MEDS: furosemide 40mg/4ml inj IV SCH (07:56)
[2018-07-13] MEDS: heparin, porcine 5000 units/ml vial SQ SCH (07:56)
[2018-07-13] MEDS: K and/or MAG REPLACEMENT MC SCH (08:00)
[2018-07-13] MEDS: insulin Lispro (HumaLOG) vial - multi-dose SQ SCH (08:10)
[2018-07-13 11:00] VITALS: BP 123/54
[2018-07-13] MEDS ORDERED: magnesium Cl slow-release 64mg tablet PO PRN (12:30)
[2018-07-13] MEDS ORDERED: magnesium 4gm in 100ml NS 100 ML IV PRN (12:30)
== END 2018-07-13 13:15 | DRG 308 ==
LOC: ER 11:22 → ED HOLD 13:38 → PCU 3S 14:40
PROVIDERS: ADMIT Internal Medicine; ATTEND Internal Medicine
PROC: 5A09357 Assistance with Respiratory Ventilation, Less than 24 Consecutive Hours, Continuous Positive Airway Pressure (ICD-10-PCS; principal; 2018-07-12)
DX: I48.91 Unspecified atrial fibrillation (principal); I50.23 Acute on chronic systolic (congestive) heart failure; J98.11 Atelectasis; I48.92 Unspecified atrial flutter; I25.10 Atherosclerotic heart disease of native coronary artery without angina pectoris; D63.8 Anemia in other chronic diseases classified elsewhere; E11.9 Type 2 diabetes mellitus without complications; E78.00 Pure hypercholesterolemia, unspecified; E78.5 Hyperlipidemia, unspecified; X58.XXXA Exposure to other specified factors, initial encounter; I11.0 Hypertensive heart disease with heart failure; I49.3 Ventricular premature depolarization; J44.9 Chronic obstructive pulmonary disease, unspecified; S90.821A Blister (nonthermal), right foot, initial encounter; Z95.1 Presence of aortocoronary bypass graft; Z72.89 Other problems related to lifestyle; Z79.84 Long term (current) use of oral hypoglycemic drugs; Z87.01 Personal history of pneumonia (recurrent); Y93.89 Activity, other specified; Y92.89 Other specified places as the place of occurrence of the external cause; Y99.8 Other external cause status
CPT/HCPCS: 36415; 71045; 76937; 80048; 80053; 82948; 83036; 83615; 83735; 83880; 84484; 85025; 85610; 85730; 87070; 93005; 93306; 94640; 94760; 96372; 96374; 96375; 97110; 97116; 97161; 99285; A6212; A6446; J0282; J1644; J1650; J1815; J1940; J3490; J7030; J7614

== ENCOUNTER 2018-08-03 14:47 | Emergency (ER) | payer MEDICARE, OTHER ==
[~2018-08-03] VITALS: Ht 165.1 cm; Wt 78.2 kg
[~2018-08-03 14:47] MED LIST changes: +CHOL10002 PO; -CHOL400T32 PO; -OMEG1CAP PO; -SAXA1TBM2 PO
[2018-08-03 15:04] VITALS: BP 146/86
[2018-08-03 16:01] LABS: BASOPHILS # (AUTO) 0.2 X10'3 (0-0.2); EOSINOPHILS # (AUTO) 0.1 X10'3 (0-0.9); EOSINOPHILS % (AUTO) 1.2 % (0-6); HEMATOCRIT 35.7 % (42.0-52.0); HEMOGLOBIN 11.6 g/dl (14.0-17.9); LYMPHOCYTES % (AUTO) 18.7 % (21-51); MEAN CORPUSCULAR HEMOGLOBIN 27.9 PG (27.0-31.0); MEAN CORPUSCULAR HGB CONC 32.6 % (33.0-36.5); MEAN CORPUSCULAR VOLUME 85.6 FL (78-98); MEAN PLATELET VOLUME 8.6 FL (7.4-10.4); MONOCYTES % (AUTO) 9.7 % (2-12); NEUTROPHILS # (AUTO) 7.3 X10'3 (1.8-7.7); NEUTROPHILS % (AUTO) 68.4 % (42-75); PLATELET COUNT 383 X10'3 (140-440); RED BLOOD COUNT 4.17 X10'6 (4.70-6.10); RED CELL DISTRIBUTION WIDTH 12.5 % (11.5-14.5); WHITE BLOOD COUNT 10.6 X10'3 (4.5-11.0)
[2018-08-03 16:12] LABS: INR 1.1 INR; PARTIAL THROMBOPLASTIN TIME 28 SECONDS (22-32); PROTHROMBIN TIME 11.8 SECONDS (9.0-12.0)
[2018-08-03 16:13] LABS: ALANINE AMINOTRANSFERASE 12 U/L (12-78); ALBUMIN 3.1 G/DL (3.4-5.0); ALBUMIN/GLOBULIN RATIO 0.8 (1.1-1.5); ALKALINE PHOSPHATASE 105 IU/L (46-116); ANION GAP 7 (8-16); ASPARTATE AMINO TRANSFERASE 13 U/L (10-37); BILIRUBIN,TOTAL 0.3 MG/DL (0.1-1.0); BLOOD UREA NITROGEN 10 MG/DL (7-18); BUN/CREATININE RATIO 16.1 (5.4-32.0); CALCIUM 8.8 MG/DL (8.5-10.1); CHLORIDE 101 MMOL/L (99-107); CREATININE 0.62 MG/DL (0.60-1.10); GLUCOSE 143 MG/DL (70-104); POTASSIUM 3.9 MMOL/L (3.5-5.1); SODIUM 138 MMOL/L (135-145); TOTAL CARBON DIOXIDE 29.6 MMOL/L (24-32); eGFR > 90 ML/MIN
[2018-08-03] MEDS ORDERED: SULF1TAB49 PO (16:23)
== END 2018-08-03 17:11 | disposition home or self-care (01) ==
LOC: ER 14:47
DX: T81.49XA Infection following a procedure, other surgical site, initial encounter (principal); I10 Essential (primary) hypertension; I25.10 Atherosclerotic heart disease of native coronary artery without angina pectoris; E78.00 Pure hypercholesterolemia, unspecified; J44.9 Chronic obstructive pulmonary disease, unspecified; E11.9 Type 2 diabetes mellitus without complications; Z95.1 Presence of aortocoronary bypass graft
CPT/HCPCS: 36415; 71045; 80053; 83605; 85025; 85610; 85730; 87040; 87070; 87077; 87186; 99285

== ENCOUNTER 2021-10-21 10:27 | Emergency (ER) | payer OTHER, MEDICARE ==
[~2021-10-21] VITALS: Ht 162.6 cm; Wt 81.4 kg
[~2021-10-21 10:27] MED LIST changes: +FENO145T26 PO; -FENO145T36 PO
[2021-10-21 12:03] LABS: BASOPHILS # (AUTO) 0.1 X10'3 (0-0.2); BASOPHILS % (AUTO) 0.7 % (0-1); EOSINOPHILS # (AUTO) 0.1 X10'3 (0-0.9); EOSINOPHILS % (AUTO) 0.7 % (0-6); HEMATOCRIT 46.9 % (42.0-52.0); HEMOGLOBIN 15.3 g/dl (14.0-17.9); LYMPHOCYTES # (AUTO) 1.9 X10'3 (1.1-4.8); LYMPHOCYTES % (AUTO) 14.8 % (21-51); MEAN CORPUSCULAR HEMOGLOBIN 27.8 PG (27.0-31.0); MEAN CORPUSCULAR HGB CONC 32.5 g/dL (33.0-36.5); MEAN CORPUSCULAR VOLUME 85.3 FL (78-98); MEAN PLATELET VOLUME 8.2 FL (7.4-10.4); MONOCYTES # (AUTO) 1.1 X10'3 (0-0.9); MONOCYTES % (AUTO) 8.5 % (2-12); NEUTROPHILS # (AUTO) 9.6 X10'3 (1.8-7.7); NEUTROPHILS % (AUTO) 75.3 % (42-75); PLATELET COUNT 217 X10'3 (140-440); WHITE BLOOD COUNT 12.7 X10'3 (4.5-11.0)
[2021-10-21 12:09] LABS: ALANINE AMINOTRANSFERASE 27 U/L (12-78); ALBUMIN 4.1 G/DL (3.4-5.0); ALBUMIN/GLOBULIN RATIO 1.1 (1.1-1.5); ALKALINE PHOSPHATASE 93 IU/L (46-116); ANION GAP 12 (8-16); ASPARTATE AMINO TRANSFERASE 22 U/L (10-37); BILIRUBIN,TOTAL 0.7 MG/DL (0.1-1.0); BLOOD UREA NITROGEN 10 MG/DL (7-18); BUN/CREATININE RATIO 12.7 (5.4-32.0); CALCIUM 9.3 MG/DL (8.5-10.1); CHLORIDE 96 MMOL/L (99-107); CREATININE 0.79 MG/DL (0.60-1.10); GLUCOSE 145 MG/DL (70-104); POTASSIUM 4.2 MMOL/L (3.5-5.1); SODIUM 136 MMOL/L (135-145); TOTAL CARBON DIOXIDE 28.1 MMOL/L (24-32); eGFR > 90 ML/MIN
[2021-10-21] MEDS ORDERED: normal saline 1000ml 1,000 ML IV ONE ×3 (14:40→19:55)
[2021-10-21] MEDS ORDERED: iohexol 300mg/ml 100ml inj. ONE (14:41)
--- NOTE | 2021-10-21 15:07 | NUR ---
Patient reports right rib pain 4/10 with bruising after fall 3 days ago. Denies LOC; no blood thinners.
[2021-10-21] MEDS ORDERED: MESSAGE TO NURSING PO SCH (15:35)
[2021-10-21] MEDS ORDERED: morphine 4 MG/ML inj SYRINge IV ONE (16:15)
[2021-10-21] MEDS ORDERED: ondansetron/PF 4mg/2ml inj IV ONE (16:15)
[2021-10-21] MEDS ORDERED: acetaminophen 325mg tablet PO ONE (18:45)
[2021-10-21 19:12] VITALS: BP 148/80
[2021-10-21 20:38] LABS: CLARITY,URINE CLEAR (Clear); COLOR,URINE YELLOW (Yellow); GLUCOSE, URINE >=1000 mg/dl (Neg); KETONES,URINE 15 mg/dl (Neg); LEUKOCYTE ESTERASE ,URINE NEGATIVE (Neg); NITRITES, URINE NEGATIVE (Neg); OCCULT BLOOD,URINE NEGATIVE (Neg); PROTEIN,URINE NEGATIVE (Neg); UROBILINOGEN,URINE 0.2 E.U/dL (0.2-1.0)
[2021-10-21 20:39] LABS: URINE AMPHETAMINE SCREEN NEGATIVE (Neg); URINE BARBITUATE SCREEN NEGATIVE (Neg); URINE BENZODIAZEPINES SCREEN NEGATIVE (Neg); URINE CANNABINOID SCREEN NEGATIVE (Neg); URINE COCAINE SCREEN NEGATIVE (Neg); URINE METHADONE SCREEN NEGATIVE (Neg); URINE OPIATE SCREEN NEGATIVE (Neg); URINE PHENCYCLIDINE SCREEN NEGATIVE (Neg)
[2021-10-21 20:41] LABS: UA COLLECTION TYPE CLN CATCH MIDSTREAM
[2021-10-21 20:45] LABS: BACTERIA,URINE FEW /HPF (Neg); MUCUS STRANDS FEW /LPF (Neg); RBC,URINE 0-2 /HPF (0-2); SQUAMOUS EPITHELIAL CELL,UR FEW /LPF (FEW); WBC CLUMPS,URINE MODERATE /HPF (NEGATIVE)
== END 2021-10-21 20:58 | disposition home or self-care (01) ==
LOC: ER 10:27
DX: R07.81 Pleurodynia (principal); R00.0 Tachycardia, unspecified; I25.10 Atherosclerotic heart disease of native coronary artery without angina pectoris; E78.00 Pure hypercholesterolemia, unspecified; I10 Essential (primary) hypertension; J44.9 Chronic obstructive pulmonary disease, unspecified; E11.9 Type 2 diabetes mellitus without complications; Z87.01 Personal history of pneumonia (recurrent); Z95.5 Presence of coronary angioplasty implant and graft; Z79.82 Long term (current) use of aspirin; Z79.899 Other long term (current) drug therapy; W19.XXXA Unspecified fall, initial encounter; Y93.89 Activity, other specified; Y92.89 Other specified places as the place of occurrence of the external cause; Y99.8 Other external cause status
CPT/HCPCS: 36415; 71250; 74176; 80053; 80305; 81001; 84443; 84484; 85025; 85610; 87077; 87088; 87186; 93005; 96360; 96361; 99285; J7030; Q9967

== ENCOUNTER 2024-09-03 13:43 | Emergency (ER) | payer OTHER ==
[~2024-09-03] VITALS: Ht 162.6 cm; Wt 84.1 kg
[~2024-09-03 13:43] MED LIST changes: +LOSA-415 PO; -LOSA25TA96 PO
[2024-09-03 15:17] VITALS: BP 121/77; PULSE 112; RESP 18; TEMP 98.5; O2SAT 94
== END 2024-09-03 15:23 | disposition home or self-care (01) ==
LOC: ER 13:44
DX: S61.011A Laceration without foreign body of right thumb without damage to nail, initial encounter (principal); J44.9 Chronic obstructive pulmonary disease, unspecified; I25.10 Atherosclerotic heart disease of native coronary artery without angina pectoris; I10 Essential (primary) hypertension; E78.00 Pure hypercholesterolemia, unspecified; E11.9 Type 2 diabetes mellitus without complications; Z79.82 Long term (current) use of aspirin; Z79.899 Other long term (current) drug therapy; Z95.1 Presence of aortocoronary bypass graft; W45.8XXA Other foreign body or object entering through skin, initial encounter; Y93.89 Activity, other specified; Y92.89 Other specified places as the place of occurrence of the external cause; Y99.8 Other external cause status
CPT/HCPCS: 99284; A6258; A6266; A6449